=== PATIENT | male | born 1990 | race Caucasian/White ===

== ENCOUNTER 2017-07-11 00:34 | Emergency (ER) | payer SELFPAY ==
[~2017-07-11] VITALS: Ht 188 cm; Wt 90.7 kg
--- OUTSIDE RECORDS SUMMARY | 2017-07-11 00:40 | XMS REPORT | Continuity of Care Document ---
Author Author [employer] Organization [employer] Address Unknown Phone Unavailable Allergies Active Description Code Type Severity Reaction Onset Reported/Identified Relationship to Patient Clinical Status Yes NKA Drug N/A N/A Medications There is no data. Problems Date Dx Coded Attending Type Code Diagnosis Diagnosed By 08/15/2015 Joe Conte Final E86.0 Dehydration 08/15/2015 Joe Conte Final R00.2 Palpitations 08/15/2015 Joe Conte Final R42 Dizziness and giddiness 10/05/2015 Vahe Justin Final F19.959 Other psychoactive substance use, unspecified with psychoact 10/05/2015 Vahe Justin Final F32.9 Major depressive disorder, single episode, unspecified 10/16/2015 Silver Hernandez Final F19.10 Other psychoactive substance abuse, uncomplicated 10/16/2015 Silver Hernandez Final F32.9 Major depressive disorder, single episode, unspecified 10/16/2015 Silver Hernandez Final R45.851 Suicidal ideations Procedures Code [place] [address] Emergency department visit for the JULISA Mendoza 08/15/2015 08164 Emergency department visit for the JULISA Mendoza 10/05/2015 85386 Emergency department visit for the JULISA Mendoza 10/16/2015 Results Test Result Range DRUG OF ABUSE SCREEN - 10/05/15 01:25 Amphet/Methamphet Group DETECTED ND Barbiturates Group NOT DETECTED ND Benzodiazepines Group NOT DETECTED ND Cocaine DETECTED ND Methadone NOT DETECTED ND Opiates Group NOT DETECTED ND Phencyclidine NOT DETECTED ND Cannabinoid (THC) DETECTED ND Oxycodone Screen NOT DETECTED ND Chain Of Custody CHAIN OF CUSTODY NOT PROVIDED. RESULTS MAY ONLY BE USED FOR MEDICAL PURPOSES. [facility] COMPREHENSIVE METABOLIC PANEL - 10/05/15 02:35 Sodium 138 mmol/L 135-145 Potassium 3.4 mmol/L 3.6-5.0 Chloride 99 mmol/L 101-111 Carbon Dioxide, Total 26 mmol/L 21-31 Glucose Level 138 mg/dL 70-100 BUN 12 mg/dL 6-20 Creatinine 1.2 mg/dL 0.5-1.2 Calcium 9.6 mg/dL 8.5-10.5 Total Protein 7.3 g/dL 6.0-8.0 Albumin 4.7 g/dL 3.2-5.5 Alkaline Phosphatase 54 U/L 42-121 AST (SGOT) 31 U/L 10-42 ALT (SGPT) 20 U/L 10-60 Total Bilirubin 0.9 mg/dL 0.2-1.0 Calculated GFR >60.0 mL/min/1.73sq >60 Anion Gap 13 mmol/L NRG ETHANOL, BLOOD - 10/05/15 02:35 Ethanol NOT DETECTED mg/dL NONE DETECTED TSH, REFLEX TO FREE T4 - 10/05/15 02:35 TSHR 1.67 mIU/mL 0.34-5.60 ACETAMINOPHEN - 10/16/15 07:22 Acetaminophen <15.0 ug/mL 0.0-50.0 ETHANOL, BLOOD - 10/16/15 07:22 Ethanol NOT DETECTED mg/dL NONE DETECTED SALICYLATE - 10/16/15 07:22 Salicylate <0.3 mg/dL 20.0-25.0 COMPREHENSIVE METABOLIC PANEL - 10/16/15 07:22 Sodium 138 mmol/L 135-145 Potassium 4.0 mmol/L 3.6-5.0 Chloride 98 mmol/L 101-111 Carbon Dioxide, Total 26 mmol/L 21-31 Glucose Level 109 mg/dL 70-100 BUN 16 mg/dL 6-20 Creatinine 1.4 mg/dL 0.5-1.2 Calcium 9.9 mg/dL 8.5-10.5 Total Protein 7.5 g/dL 6.0-8.0 Albumin 4.9 g/dL 3.2-5.5 Alkaline Phosphatase 43 U/L 42-121 AST (SGOT) 18 U/L 10-42 ALT (SGPT) 13 U/L 10-60 Total Bilirubin 1.3 mg/dL 0.2-1.0 Calculated GFR >60.0 mL/min/1.73sq >60 Anion Gap 14 mmol/L NRG Encounters ACCT No. Visit Date/Time Discharge Status Pt. Type Provider Facility Loc./Unit Complaint [id number] 10/16/2015 06:59:00 10/16/2015 13:37:00 DIS Emergency Silver Hernandez [facility] ER Mental Health Eval. [id number] 10/05/2015 01:01:00 10/05/2015 03:41:00 DIS Emergency MargothVahe [facility] ER Mental Health Eval. [id number] 08/15/2015 13:03:00 08/15/2015 14:45:00 DIS Emergency Joe Conte [facility] ER [facility]
--- OUTSIDE RECORDS SUMMARY | 2017-07-11 00:40 | XMS REPORT ---
Author Author YAMILA GRAY Organization Unknown Address [address] [place] [address] Care Team Providers Care Graduate Civil Engineer Name Role Phone YAMILA GRAY Unavailable ABEL NAVAS Unavailable Problems Problem SNOMED Onset Date Resolved Date Status N/A N/A N/A N/A N/A Allergies, Adverse Reactions NA Care Plan Goal Instructions Client will participate in THOMAS services as he has identified a need Medications NA Lab Results NA Encounters Date Time Service Code Provider 11:52:00 am YAMILA GRAY 11:35:00 am YAMILA GRAY Family History Functional Status NA Immunizations NA Vital Signs NA Social History NA Hospital Discharge Instructions NA Instructions * Not Applicable Procedures NA Purpose Electronic Copy
--- OUTSIDE RECORDS SUMMARY | 2017-07-11 00:40 | XMS REPORT ---
Author Author YAMILA GRAY Organization Unknown Address [address] [place] [address] Care Team Providers Care Rush Seater Name Role Phone YAMILA GRAY Unavailable ELOISE ABEL Unavailable Problems Problem SNOMED Onset Date Resolved Date Status N/A N/A N/A N/A N/A Allergies, Adverse Reactions NA Care Plan Goal Instructions Client will be functioning more independently with supports and have a life worth living. Engage with treatment team to build rapport. Learn and practice coping skills to reduce symptoms and improve functioning. The following Services will be utilized 1 - 3 times until goal is reached: Client will participate in THOMAS services as he has identified a need Medications NA Lab Results NA Encounters Date Time Service Code Provider 11:52:00 am YAMILA GRAY 11:35:00 am YAMILA GRAY 12:00:00 am PSYCHIATRIC DIAGNOSTIC EVALUATION [address]25 ABEL ELOISE 12:00:00 am INDIVIDUAL THERAPY H0004 YAMILA GRYA 12:00:00 am OUTREACH SERVICES 55 YAMILA GRAY 12:00:00 am OUTREACH SERVICES 55 YAMILA GRAY 12:00:00 am OUTREACH SERVICES 55 YAMILA GRAY Family History Functional Status NA Immunizations NA Vital Signs NA Social History NA Hospital Discharge Instructions NA Instructions * Not Applicable Procedures NA Purpose Electronic Copy
--- OUTSIDE RECORDS SUMMARY | 2017-07-11 00:40 | XMS REPORT ---
Author Author JESUS OAKES Organization [employer] Address Unknown Phone Unavailable Care Team Providers Care Culinary Worker Name Role Phone JESUS OAKES CP Unavailable Allergies No Known Allergies Problems Problem Type Condition Code Onset Dates Condition Status Assessment Generalized anxiety disorder F41.1 Active Assessment Affective disorder F39 Active Medications No Known Medications Procedures Procedure Coding System Code Date Psychotherapy, patient &/family, 30 minutes, new patient CPT-4 68344 October Results No Known Results Summary Purpose [employer] Submission
[2017-07-11 00:42] VITALS: BP 156/108
--- NOTE | 2017-07-11 02:14 | ED Head Injury ---
General Chief Complaint: Laceration Stated Complaint: HEAD INJ W LAC Nursing Triage Note: Patient ambulated independently to room 10. Patient reports that he has been drinking. Patient reports that he was doing summersaults and hit his head on a light bulb causing a laceration on his head. Laceration noted to top of head about 5 cm. Patient alert and oriented. Source: patient, RN notes reviewed (SLL PMH IS OBTAINED FROM RN) Exam Limitations: intoxication History of Present Illness Date Seen by Provider: Jul 11, 2017 Time Seen by Provider: 00:45 Initial Comments PT ARRIVES VIA POV C/O HEAD INJURY WITH LACERATION TO TOP OF HEAD STATES "I JUMPED INTO A LIGHTBULB" STATES "I WAS DOING A FRONT FLIP AND HIT A LIGHT BULB" NO LOSS OF CONSCIOUSNESS DENIES OTHER INJURIES PT HAS BEEN DRINKING AN UNKNOWN AMOUNT OF ALCOHOL TONIGHT--REFUSES TO SAY HOW MUCH OR WHAT HE WAS DRINKING PT BELLIGERENT AND CURSING SOON I ENTER ROOM PT REFUSED HEAD CT OR ANY TEST AND REFUSES REPAIR AND MAKING DEMANDS SOON I ENTER ROOM AND THEN STATES HE IS JUST GOING TO LEAVE--REFUSED TO SIGN AMA PAPERS, AND PROMPTLY LEFT ER. SPEECH CLEAR AND GAIT STEADY Allergies and Home Medications Patient Home Medication List Home Medication List Reviewed: Yes Constitutional: other (UNABLE TO OBTAIN) Skin: other (LACERATION TO TOP OF HEAD) Past Nottigj-Fpbamu-Hlfckt Hx Patient Social History Alcohol Use: Occasionally Uses Recreational Drug Use: No Smoking Status: Current Everyday Smoker Type Used: Cigarettes Recent Foreign Travel: No Contact w/Someone Who Travel: No Recent Infectious Disease Expo: No Physical Abuse: No Sexual Abuse: No Surgeries History of Surgeries: No Respiratory History of Respiratory Disorde: No Cardiovascular History of Cardiac Disorders: No Neurological History of Neurological Disord: No Reproductive System Hx Reproductive Disorders: No Gastrointestinal History of Gastrointestinal Di: No Musculoskeletal History of Musculoskeletal Dis: No Endocrine History of Endocrine Disorders: No Psychosocial History of Psychiatric Problem: No Suicide Risk Score: 0 Integumentary History of Skin or Integumenta: No Blood Transfusions History of Blood Disorders: No Physical Exam Vital Signs Vital Signs - First Documented 07/11/17 00:42 Temp 98.2 Pulse 124 Resp 18 B/P (MAP) 156/108 (124) Pulse Ox 94 Capillary Refill : Less Than 3 Seconds General Appearance: other (STRONG ODOR OF ETOH. SPEECH CLEAR, GAIT STEADY. PT BELLIGERANT AND CURSING SOON I ENTER ROOM.) HEENT: PERRL/EOMI, TMs normal, pharynx normal, other (PT HAS 5 CM LINEAR LACERATION TO LEFT TOP OF HEAD, WITH MILD SURROUNDING EDEMA. ) Neck: non-tender Cardiovascular: regular rate, rhythm Respiratory: normal breath sounds Extremities: normal range of motion, non-tender, normal capillary refill Psychiatric: alert, oriented x 3 Crainal Nerves: normal speech Coordination/Gait: normal gait Motor/Sensory: no motor deficit, no sensory deficit Skin: normal color, warm/dry Mya Coma Score Best Eye Response: (4) Open Spontaneously Best Verbal Response: (5) Oriented Best Motor Response: (6) Obeys Commands Mya Total: 15 Progress/Results/Core Measures Results/Orders Vital Signs/I&O Vital Sign - Last 12Hours 07/11/17 00:42 Temp 98.2 Pulse 124 Resp 18 B/P (MAP) 156/108 (124) Pulse Ox 94 Blood Pressure Mean: 124 Departure Impression Impression: Primary Impression: Left against medical advice Disposition: 07 AGAINST MEDICAL ADVICE Condition: Against Medical Advice Departure-Patient Inst. Referrals: NO,LOCAL PHYSICIAN (PCP) Primary Care Physician Images Head/Face 1 - Laceration, Swelling, Tenderness DANE MOTTA DO Jul 11, 2017 02:13
== END 2017-07-11 01:03 | disposition left against medical advice (07) ==
LOC: EDUNIT# 00:34 → ER 00:36
DX: S09.90XA Unspecified injury of head, initial encounter (principal); S01.81XA Laceration without foreign body of other part of head, initial encounter; R40.2142 Coma scale, eyes open, spontaneous, at arrival to emergency department; R40.2252 Coma scale, best verbal response, oriented, at arrival to emergency department; R40.2362 Coma scale, best motor response, obeys commands, at arrival to emergency department; F17.210 Nicotine dependence, cigarettes, uncomplicated; W22.09XA Striking against other stationary object, initial encounter
CPT/HCPCS: 99282

== ENCOUNTER 2017-09-20 15:13 | Emergency (ER) | payer SELFPAY ==
[~2017-09-20] VITALS: Ht 182.9 cm; Wt 81.6 kg
[2017-09-20 16:39] LABS: BASOPHILS % (AUTO) 0 % (0-10); EOSINOPHILS % (AUTO) 0 % (0-10); HEMATOCRIT 49 % (40-54); HEMOGLOBIN 17.3 G/DL (13.3-17.7); LYMPHOCYTES # (AUTO) 0.9 X 10^3 (1.0-4.0); LYMPHOCYTES % (AUTO) 12 % (12-44); MEAN CORPUSCULAR HEMOGLOBIN 32 PG (25-34); MEAN CORPUSCULAR HGB CONC 35 G/DL (32-36); MEAN CORPUSCULAR VOLUME 92 FL (80-99); MEAN PLATELET VOLUME 10.1 FL (7.4-10.4); MONOCYTES # (AUTO) 0.8 X 10^3 (0.0-1.0); MONOCYTES % (AUTO) 10 % (0-12); NEUTROPHILS # (AUTO) 6.2 X 10^3 (1.8-7.8); NEUTROPHILS % (AUTO) 78 % (42-75); PLATELET COUNT 284 10^3/uL (130-400); RED BLOOD COUNT 5.35 10^6/uL (4.35-5.85); RED CELL DISTRIBUTION WIDTH 12.7 % (10.0-14.5); WHITE BLOOD COUNT 7.9 10^3/uL (4.3-11.0)
[2017-09-20 16:57] LABS: ALANINE AMINOTRANSFERASE 38 U/L (0-55); ALBUMIN 4.8 GM/DL (3.2-4.5); ALKALINE PHOSPHATASE 47 U/L (40-136); BILIRUBIN,TOTAL 1.7 MG/DL (0.1-1.0); BUN/CREATININE RATIO 10; CALCIUM 10.4 MG/DL (8.5-10.1); CARBON DIOXIDE 22 MMOL/L (21-32); CHLORIDE 102 MMOL/L (98-107); CREATININE SERUM 1.24 MG/DL (0.60-1.30); GFR ESTIMATED > 60; GLUCOSE 75 MG/DL (70-105); POTASSIUM 4.7 MMOL/L (3.6-5.0); SALICYLATE < 5.0 MG/DL (5.0-20.0); SODIUM 140 MMOL/L (135-145); TOTAL PROTEIN 7.9 GM/DL (6.4-8.2)
[2017-09-20 16:58] LABS: ACETAMINOPHEN < 10 UG/ML (10-30)
--- NOTE | 2017-09-20 17:04 | ED Psychosocial ---
General Chief Complaint: Psych/Social Disorder Stated Complaint: MENTAL EVAL Nursing Triage Note: Pt reports he made suicidal and homicidal threats last night when threatening to shoot himself or someone else with a gun. Pt reports he has hx anxiety and depression and has not been on medications for quite some time. Pt states he does not wish to at this time and reports that his plan yesterday involved a gun that he does not have access to. Pt states he came back into town today and the geospatial systems integrator were called to his house. After the geospatial systems integrator left, pt reports he made a safe plan with his aunt and felt much calmer. Waterworks Supervisor were again called to his house and pt reports he was told by geospatial systems integrator he should come to ER for mental health screening. Pt also c/o possible broken nose from 3 days ago. Pt calm upon arrival to ED acc by female. History of Present Illness Date Seen by Provider: September 20, 2017 Time Seen by Provider: 16:00 Initial Comments 26-year-old male with long-standing history of bipolar disorder reports last evening that he made suicidal thoughts to his friends after drinking alcohol, taking Xanax and smoking marijuana. He has previously been treated with multiple antipsychotic medications and did the best while on Effexor and Xanax. However when he discontinued the Xanax he began to have seizure activity. He's been on no antipsychotic medications for the last 3 years and denies any further seizure history. At present time he denies any suicidal or homicidal ideations. He reports relationship issues with his mother that seem to stimulate many of his mental health issues, he reports lack of attention from her since childhood that has profoundly affected him to complete attention seeking behaviors now. He reports last evening finding out that she was moving to [place] along with his sister and that his mother is remarrying. He did superficial cutting to his right wrist last evening, he denies doing this to harm himself but rather to obtain attention from his mother and friends. He denies any suicide attempts in the past. He has a close relationship and open communication with his aunt, they already have a plan with appointment scheduled for him to be evaluated at [facility] tomorrow. Today his mother called the [place] police and asked to have a welfare check completed, after the first visit with the police the patient agreed to keep an open line of communication with his aunt and call her for further thoughts of harm. The police made a second visit to his home which caused him extreme anxiety and he reported here per their recommendation. He presents in a calm demeanor, good eye contact and answering all questions appropriately. His girlfriend is present as well. Timing/Duration: yesterday Severity: mild Associated Symptoms: anxiety Allergies and Home Medications Allergies Coded Allergies: No Known Drug Allergies (Unverified , 09/20/17) Patient Home Medication List Home Medication List Reviewed: Yes Constitutional: no symptoms reported, see HPI Psychiatric/Neurological: See HPI, Anxiety, Depressed All Other Systems Reviewed Negative Unless Noted: Yes Past Uenqkci-Lefddj-Wbuhea Hx Past Med/Social Hx: Reviewed Nursing Past Med/Soc Hx Patient Social History Alcohol Use: Regular Use Alcohol Beverage of Choice: Beer Recreational Drug Use: Yes (MARIJUANA) Smoking Status: Current Everyday Smoker Type Used: Cigarettes Recent Foreign Travel: No Contact w/Someone Who Travel: No Recent Infectious Disease Expo: No Recent Hopitalizations: No Seasonal Allergies Seasonal Allergies: No Past Medical History Surgeries: Yes Orthopedic Respiratory: No Cardiac: No Neurological: No Reproductive Disorders: No Genitourinary: No Gastrointestinal: No Musculoskeletal: No Endocrine: No Psychosocial: Yes Anxiety, Depression Integumentary: No Blood Disorders: No Physical Exam Vital Signs Vital Signs - First Documented 09/20/17 15:40 Temp 98.1 Pulse 127 Resp 20 B/P (MAP) 128/74 (92) Pulse Ox 96 O2 Delivery Room Air Capillary Refill : Less Than 3 Seconds General Appearance: WD/WN, no apparent distress HEENT: PERRL/EOMI, normal ENT inspection, TMs normal, pharynx normal Neck: non-tender, full range of motion, supple, normal inspection Respiratory: chest non-tender, lungs clear, normal breath sounds Cardiovascular: normal peripheral pulses, regular rate, rhythm Gastrointestinal: normal bowel sounds, non tender, soft Extremities: normal range of motion, non-tender, normal inspection Neurologic/Psychiatric: no motor/sensory deficits, alert, normal mood/affect, oriented x 3 Appearance/Memory: appropriate appearance, appropriate insight, neat, no memory impairment Behavior/Eye Contact: cooperative, good eye contact, normal speech Thoughts/Hallucinations: normal thought pattern, no apparent hallucination Skin: normal color, warm/dry, other (superficial lacerations to right wrist, no bleeding or dc) Progress/Results/Core Measures Results/Orders Lab Results Laboratory Tests Test 09/20/17 16:29 09/20/17 17:25 Range/Units White Blood Count 7.9 4.3-11.0 10^3/uL Red Blood Count 5.35 4.35-5.85 10^6/uL Hemoglobin 17.3 13.3-17.7 G/DL Hematocrit 49 40-54 % Mean Corpuscular Volume 92 80-99 FL Mean Corpuscular Hemoglobin 32 25-34 PG Mean Corpuscular Hemoglobin Concent 35 32-36 G/DL Red Cell Distribution Width 12.7 10.0-14.5 % Platelet Count 284 130-400 10^3/uL Mean Platelet Volume 10.1 7.4-10.4 FL Neutrophils (%) (Auto) 78 H 42-75 % Lymphocytes (%) (Auto) 12 12-44 % Monocytes (%) (Auto) 10 0-12 % Eosinophils (%) (Auto) 0 0-10 % Basophils (%) (Auto) 0 0-10 % Neutrophils # (Auto) 6.2 1.8-7.8 X 10^3 Lymphocytes # (Auto) 0.9 L 1.0-4.0 X 10^3 Monocytes # (Auto) 0.8 0.0-1.0 X 10^3 Eosinophils # (Auto) 0.0 0.0-0.3 10^3/uL Basophils # (Auto) 0.0 0.0-0.1 10^3/uL Sodium Level 140 135-145 MMOL/L Potassium Level 4.7 3.6-5.0 MMOL/L Chloride Level 102 98-107 MMOL/L Carbon Dioxide Level 22 21-32 MMOL/L Anion Gap 16 H 5-14 MMOL/L Blood Urea Nitrogen 12 7-18 MG/DL Creatinine 1.24 0.60-1.30 MG/DL Estimat Glomerular Filtration Rate > 60 BUN/Creatinine Ratio 10 Glucose Level 75 70-105 MG/DL Calcium Level 10.4 H 8.5-10.1 MG/DL Total Bilirubin 1.7 H 0.1-1.0 MG/DL Aspartate Amino Transf (AST/SGOT) 28 5-34 U/L Alanine Aminotransferase (ALT/SGPT) 38 0-55 U/L Alkaline Phosphatase 47 40-136 U/L Total Protein 7.9 6.4-8.2 GM/DL Albumin 4.8 H 3.2-4.5 GM/DL Salicylates Level < 5.0 L 5.0-20.0 MG/DL Acetaminophen Level < 10 L 10-30 UG/ML Serum Alcohol < 10 <10 MG/DL Urine Color YELLOW Urine Clarity SLIGHTLY CLOUDY Urine pH 5 5-9 Urine Specific [place] 1.030 H 1.016-1.022 Urine Protein 1+ H NEGATIVE Urine Glucose (UA) NEGATIVE NEGATIVE Urine Ketones 3+ H NEGATIVE Urine Nitrite NEGATIVE NEGATIVE Urine Bilirubin 1+ H NEGATIVE Urine Urobilinogen 1 NORMAL MG/DL Urine Leukocyte Esterase 1+ H NEGATIVE Urine RBC (Auto) NEGATIVE NEGATIVE Urine RBC NONE /HPF Urine WBC 0-2 /HPF Urine Squamous Epithelial Cells NONE /HPF Urine Crystals NONE /LPF Urine Bacteria NEGATIVE /HPF Urine Casts NONE /LPF Urine Mucus NEGATIVE /LPF Urine Culture Indicated NO My Orders Orders - SERGE SOSA Ua Culture If Indicated (09/20/17 16:16) Cbc With Automated Diff (09/20/17 16:16) Comprehensive Metabolic Panel (09/20/17 16:16) Alcohol (09/20/17 16:16) Drug Screen Stat (Urine) (09/20/17 16:16) Acetaminophen (09/20/17 16:16) Salicylate (09/20/17 16:16) General/Regular (09/20/17 Dinner) Vital Signs/I&O 09/20/17 09/20/17 15:40 17:33 Temp 98.1 98.1 Pulse 127 127 Resp 20 20 B/P (MAP) 128/74 (92) 128/74 (92) Pulse Ox 96 96 O2 Delivery Room Air Blood Pressure Mean: 92 Progress Progress Note : Time: 16:00 Progress Note Initial evaluation completed, contacted the SAVE line. Since the patient is not homicidal or suicidal they recommended welfare check later today. The patient was in agreement with this and his number was provided to social worker psychiatric, Anna Willard. 1700 patient continues to be compliant with all questions and exam. He ate a regular dinner meal, reports feeling much better. Wounds to right writs cleaned with Hibiclens and sterile saline, dressing applied. 1715 urine obtained. Patient denies any other complaints at this time, he continues to be compliant through the exam and denies suicidal/homicidal ideations. Discharge instructions and return precautions reviewed in detail. All questions answered. Departure Impression Primary Impression: Bipolar 1 disorder, mixed Disposition: 01 HOME, SELF-CARE Condition: Stable Departure-Patient Inst. Referrals: [facility] (PCP/Family) Primary Care Physician Patient Instructions: Bipolar Disorder (DC) Add. Discharge Instructions: Keep open communication with her aunt, contact her immediately if feelings of harm to yourself or others. Keep scheduled mental health appointment for tomorrow. The mental health screener will call later this evening to do a welfare check on you. Return to emergency department if symptoms become worse or suicidal thoughts. All discharge instructions reviewed with patient and/or family. Voiced understanding. Copy Copies To 1: MATEO ALBRIGHT MD, AMY ARNP September 20, 2017 17:04
[2017-09-20 17:32] LABS: CLARITY,URINE SLIGHTLY CLOUDY; COLOR,URINE YELLOW; GLUCOSE, URINE (UA) NEGATIVE (NEGATIVE); KETONES,URINE 3+ (NEGATIVE); LEUKOCYTE ESTERASE ,URINE 1+ (NEGATIVE); NITRITE,URINE NEGATIVE (NEGATIVE); PH,URINE 5 (5-9); PROTEIN,URINE 1+ (NEGATIVE); UROBILINOGEN,URINE 1 MG/DL (NORMAL)
[2017-09-20 17:33] VITALS: BP 128/74
[2017-09-20 17:38] LABS: BACTERIA,URINE NEGATIVE /HPF; BILIRUBIN,URINE 1+ (NEGATIVE); WBC,URINE 0-2 /HPF
[2017-09-20 17:46] LABS: AMPHETAMINE SCREEN, URINE POSITIVE (NEGATIVE); BARBITURATE SCREEN URINE NEGATIVE (NEGATIVE); BENZODIAZEPINES SCREEN URINE POSITIVE (NEGATIVE); CANNABINOID SCREEN, URINE POSITIVE (NEGATIVE); COCAINE SCREEN URINE NEGATIVE (NEGATIVE); METHADONE STAT NEGATIVE (NEGATIVE); METHAMPHETAMINE SCREEN URINE S POSITIVE (NEGATIVE); OPIATE SCREEN URINE NEGATIVE (NEGATIVE); OXYCODONE STAT NEGATIVE (NEGATIVE); PROPOXYPHENE STAT NEGATIVE (NEGATIVE); TRICYCLIC ANTIDEPRESSANTS SCRE NEGATIVE (NEGATIVE)
== END 2017-09-20 17:32 | disposition home or self-care (01) ==
LOC: ER 15:13 → EDUNIT# 15:13 → ER 17:32
DX: F31.89 Other bipolar disorder (principal); F41.9 Anxiety disorder, unspecified; F12.10 Cannabis abuse, uncomplicated; F17.210 Nicotine dependence, cigarettes, uncomplicated
CPT/HCPCS: 36415; 80053; 80306; 80320; 80329; 81000; 85025; 99284

== ENCOUNTER 2018-03-30 14:21 | Inpatient (IN) | payer SELFPAY ==
[~2018-03-30] VITALS: Ht 180.3 cm; Wt 72.6 kg
--- OUTSIDE RECORDS SUMMARY | 2018-03-30 14:25 | XMS REPORT ---
Author Author ABRAM ORTIZ Organization [facility] Address [address] [place] [address] Care Team Providers Care Paramedic Supervisor Name Role Phone ABRAM ORTIZ Unavailable PROBLEMS Unknown Problems ALLERGIES No Known Allergies ENCOUNTERS Encounter Location Date Diagnosis [facility] [id number] [place] [phone] 08 May, 2017 [facility] [id number] [place] [phone] 07 May, 2017 Coughing R05 [facility] [id number] [place] [phone] 08 Apr, 2017 Viral URI J06.9 [facility] [address] [place] [phone] 13 Oct, 2015 Affective disorder F39 and Generalized anxiety disorder F41.1 [place] [address] [place] [phone] 08 Feb, 2011 [facility] [address] [place] [address] Nov, IMMUNIZATIONS No Known Immunizations SOCIAL HISTORY Never Assessed REASON FOR VISIT Cough Pt states he has had a cough for about a month LAURA Franklin PLAN OF CARE Activity Details Follow Up prn Reason: VITAL SIGNS Weight 179.8 lbs 2017-05-03 Temperature 98.4 degrees Fahrenheit 2017-05-03 Heart Rate 96 bpm 2017-05-03 Respiratory Rate 18 2017-05-03 Blood pressure systolic 140 mmHg 2017-05-03 Blood pressure diastolic 96 mmHg 2017-05-03 MEDICATIONS Unknown Medications RESULTS No Results PROCEDURES No Known procedures INSTRUCTIONS MEDICATIONS ADMINISTERED No Known Medications MEDICAL (GENERAL) HISTORY Type Description Date Surgical History plastic surgery on face 1999 Hospitalization History seizure 03/2016
--- OUTSIDE RECORDS SUMMARY | 2018-03-30 14:25 | XMS REPORT ---
Author Author ABHAY DUKES Organization [facility] Address [address] [place] [address] Care Team Providers Care Clerical Coordinator Name Role Phone ABHAY DUKES Unavailable PROBLEMS Unknown Problems ALLERGIES No Known Allergies ENCOUNTERS Encounter Location Date Diagnosis [place] [id number] [place] [phone] May, [facility] [address] [place] [place] [id number] [place] [phone] May, Coughing R05 [place] [id number] [place] [phone] Apr, Viral URI J06.[address] [place] [id number] [place] [phone] Oct, Affective disorder F39 and Generalized anxiety disorder F41.1 [place] [id number] [place] [phone] 08 Feb, 2011 [place] [id number] [place] [phone] Nov, IMMUNIZATIONS No Known Immunizations SOCIAL HISTORY Never Assessed REASON FOR VISIT Sore throat--CarleyleachMA, Coughing for the last month, trouble sleeping because of sore throat, Wondering if his anxiety is not helping the cause, also wanting anxiety medcine that is not addictive PLAN OF CARE VITAL SIGNS Weight 180.6 lbs 2017-06-02 Temperature 97.8 degrees Fahrenheit 2017-06-02 Heart Rate 90 bpm 2017-06-02 Respiratory Rate 20 2017-06-02 Blood pressure systolic 140 mmHg 2017-06-02 Blood pressure diastolic 100 mmHg 2017-06-02 MEDICATIONS Medication Instructions Dosage Frequency Start Date End Date Duration Status Singulair 10 mg Orally Once a day 1 tablet in the evening 24h May, 30 day(s) Active Cetirizine HCl 10 mg Orally Once a day 1 tablet 24h May, Nov, 30 day(s) Active RESULTS Name Result Date Reference Range Xray : Chest 2 View (IN HOUSE) PROCEDURES Procedure Date Ordered Result Body Site X-RAY EXAM CHEST 2 VIEWS Jun 02, 2017 INSTRUCTIONS MEDICATIONS ADMINISTERED No Known Medications MEDICAL (GENERAL) HISTORY Type Description Date Surgical History plastic surgery on face 1999 Hospitalization History seizure 03/2016
--- OUTSIDE RECORDS SUMMARY | 2018-03-30 14:26 | XMS REPORT | Continuity of Care Document ---
Author Author [facility] Organization [facility] Address Unknown Phone Unavailable Allergies Active Description Code Type Severity Reaction Onset Reported/Identified Relationship to Patient Clinical Status Yes NKA Drug N/A N/A Yes NO KNOWN DRUG ALLERGIES UNKNOWN NO KNOWN DRUG ALLERG Yes No Known Drug Allergies [id number] Drug Allergy Unknown N/A 09/20/2017 Medications There is no data. Problems Date [...] 10/16/2015 Silver Hernandez Final R45.851 Suicidal ideations 07/11/2017 DANE MOTTA DO Ot F17.210 NICOTINE DEPENDENCE, CIGARETTES, UNCOMPL 07/11/2017 DANE MOTTA DO Ot R40.2142 COMA SCALE, EYES OPEN, SPONTANEOUS, EMR 07/11/2017 DANE MOTTA DO Ot R40.2252 COMA SCALE, BEST VERBAL RESPONSE, ORIENT 07/11/2017 DANE MOTTA DO Ot R40.2362 COMA SCALE, BEST MOTOR RESPONSE, OBEYS C 07/11/2017 DANE MOTTA DO Ot S01.81XA LACERATION W/O FOREIGN BODY OF OTH PART 07/11/2017 DANE MOTTA DO Ot S09.90XA UNSPECIFIED INJURY OF HEAD, INITIAL ENCO 07/11/2017 DANE MOTTA DO Ot W22.09XA STRIKING AGAINST OTHER STATIONARY OBJECT 07/13/2017 DANE MOTTA DO Ot F17.210 NICOTINE DEPENDENCE, CIGARETTES, UNCOMPL 07/13/2017 DANE MOTTA DO Ot R40.2142 COMA SCALE, EYES OPEN, SPONTANEOUS, EMR 07/13/2017 DANE MOTTA DO Ot R40.2252 COMA SCALE, BEST VERBAL RESPONSE, ORIENT 07/13/2017 DANE MOTTA DO Ot R40.2362 COMA SCALE, BEST MOTOR RESPONSE, OBEYS C 07/13/2017 DANE MOTTA DO Ot S01.81XA LACERATION W/O FOREIGN BODY OF OTH PART 07/13/2017 DANE MOTTA DO Ot S09.90XA UNSPECIFIED INJURY OF HEAD, INITIAL ENCO 07/13/2017 DANE MOTTA DO Ot W22.09XA STRIKING AGAINST OTHER STATIONARY OBJECT 09/20/2017 SHEILA, SERGE RAINESP Ot F12.10 CANNABIS ABUSE, UNCOMPLICATED 09/20/2017 SHEILA, SERGE RAINESP Ot F17.210 NICOTINE DEPENDENCE, CIGARETTES, UNCOMPL 09/20/2017 SHEILA, SERGE STOCKING AND [employer]PER[employer]OR Ot F31.89 OTHER BIPOLAR DISORDER 09/20/2017 SHEILA, SERGE [employer]ING AND [employer] SUPERVISOR Ot F41.9 ANXIETY DISORDER, UNSPECIFIED 03/17/2018 Jo-Ann Gonzalez 292.0 DRUG WITHDRAWAL 03/17/2018 Jo-Ann Gonzalez A 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 NRG COMPREHENSIVE METABOLIC PANEL - 10/05/15 02:35 Sodium [...] >60.0 mL/min/1.73sq >60 Anion Gap 13 mmol/L [facility] ETHANOL, BLOOD - 10/05/15 02:35 Ethanol NOT [...] >60.0 mL/min/1.73sq >60 Anion Gap 14 mmol/L NR Complete blood count (CBC) with automated white blood cell (WBC) differential - 09/20/17 16:29 Blood leukocytes automated count (number/volume) 7.9 10*3/uL 4.3-11.0 Blood erythrocytes automated count (number/volume) 5.35 10*6/uL 4.35-5.85 Venous blood hemoglobin measurement (mass/volume) 17.3 g/dL 13.3-17.7 Blood hematocrit (volume fraction) 49 % 40-54 Automated erythrocyte mean corpuscular volume 92 [foz_us] 80-99 Automated erythrocyte mean corpuscular hemoglobin (mass per erythrocyte) 32 pg 25-34 Automated erythrocyte mean corpuscular hemoglobin concentration measurement ( mass/volume) 35 g/dL 32-36 Automated erythrocyte distribution width ratio 12.7 % 10.0-14.5 Automated blood platelet count (count/volume) 284 10*3/uL 130-400 Automated blood platelet mean volume measurement 10.1 [foz_us] 7.4-10.4 Automated blood neutrophils/100 leukocytes 78 % 42-75 Automated blood lymphocytes/100 leukocytes 12 % 12-44 Blood monocytes/100 leukocytes 10 % 0-12 Automated blood eosinophils/100 leukocytes 0 % 0-10 Automated blood basophils/100 leukocytes 0 % 0-10 Blood neutrophils automated count (number/volume) 6.2 10*3 1.8-7.8 Blood lymphocytes automated count (number/volume) 0.9 10*3 1.0-4.0 Blood monocytes automated count (number/volume) 0.8 10*3 0.0-1.0 Automated eosinophil count 0.0 10*3/uL 0.0-0.3 Automated blood basophil count (count/volume) 0.0 10*3/uL 0.0-0.1 Comprehensive metabolic panel - 09/20/17 16:29 Serum or plasma sodium measurement (moles/volume) 140 mmol/L 135-145 Serum or plasma potassium measurement (moles/volume) 4.7 mmol/L 3.6-5.0 Serum or plasma chloride measurement (moles/volume) 102 mmol/L 98-107 Carbon dioxide 22 mmol/L 21-32 Serum or plasma anion gap determination (moles/volume) 16 mmol/L 5-14 Serum or plasma urea nitrogen measurement (mass/volume) 12 mg/dL 7-18 Serum or plasma creatinine measurement (mass/volume) 1.24 mg/dL 0.60-1.30 Serum or plasma urea nitrogen/creatinine mass ratio 10 NRG Serum or plasma creatinine measurement with calculation of estimated glomerular filtration rate > NRG Serum or plasma glucose measurement (mass/volume) 75 mg/dL 70-105 Serum or plasma calcium measurement (mass/volume) 10.4 mg/dL 8.5-10.1 Serum or plasma total bilirubin measurement (mass/volume) 1.7 mg/dL 0.1-1.0 Serum or plasma alkaline phosphatase measurement (enzymatic activity/volume) 47 U/L 40-136 Serum or plasma aspartate aminotransferase measurement (enzymatic activity/ volume) 28 U/L 5-34 Serum or plasma alanine aminotransferase measurement (enzymatic activity/volume ) 38 U/L 0-55 Serum or plasma protein measurement (mass/volume) 7.9 g/dL 6.4-8.2 Serum or plasma albumin measurement (mass/volume) 4.8 g/dL 3.2-4.5 Serum or plasma salicylates measurement (mass/volume) - 09/20/17 16:29 Serum or plasma salicylates measurement (mass/volume) < mg/dL 5.0-20.0 Serum or plasma acetaminophen measurement (mass/volume) - 09/20/17 16:29 Serum or plasma acetaminophen measurement (mass/volume) < ug/mL 10-30 Serum or plasma ethanol measurement (mass/volume) - 09/20/17 16:29 Serum or plasma ethanol measurement (mass/volume) < mg/dL <10 Complete urinalysis with reflex to culture - 09/20/17 17:25 Urine color determination YELLOW NRG Urine clarity determination SLIGHTLY CLOUDY NRG Urine pH measurement by test strip 5 5-9 Specific gravity of urine by test strip 1.030 1.016- 1.022 Urine protein assay by test strip, semi-quantitative 1+ NEGATIVE Urine glucose detection by automated test strip NEGATIVE NEGATIVE Erythrocytes detection in urine sediment by light microscopy NEGATIVE NEGATIVE Urine ketones detection by automated test strip 3+ NEGATIVE Urine nitrite detection by test strip NEGATIVE NEGATIVE Urine total bilirubin detection by test strip 1+ NEGATIVE Urine urobilinogen measurement by automated test strip (mass/volume) 1 mg/dL NORMAL Urine leukocyte esterase detection by dipstick 1+ NEGATIVE Automated urine sediment erythrocyte count by microscopy (number/high power field) NONE NRG Automated urine sediment leukocyte count by microscopy (number/high power field ) [HPF] NRG Bacteria detection in urine sediment by light microscopy NEGATIVE NRG Squamous epithelial cells detection in urine sediment by light microscopy NONE NRG Crystals detection in urine sediment by light microscopy NONE NRG Casts detection in urine sediment by light microscopy NONE NRG Mucus detection in urine sediment by light microscopy NEGATIVE NRG Complete urinalysis with reflex to culture NO NRG Urine drug screening test - 09/20/17 17:25 Urine phencyclidine detection by screening method NEGATIVE NEGATIVE Urine benzodiazepines detection by screening method POSITIVE NEGATIVE Urine cocaine detection NEGATIVE NEGATIVE Urine amphetamines detection by screening method POSITIVE NEGATIVE Urine methamphetamine detection by screening method POSITIVE NEGATIVE Urine cannabinoids detection by screening method POSITIVE NEGATIVE Urine opiates detection by screening method NEGATIVE NEGATIVE Urine barbiturates detection NEGATIVE NEGATIVE Screening urine tricyclic antidepressants detection NEGATIVE NEGATIVE Urine methadone detection by screening method NEGATIVE NEGATIVE Urine oxycodone detection NEGATIVE NEGATIVE Urine propoxyphene detection NEGATIVE NEGATIVE Encounters ACCT No. Visit Date/Time Discharge Status Pt. Type Provider Facility Loc./Unit Complaint [id number] 10/16/2015 06:59:00 10/16/2015 13:37:00 DIS Emergency [facility] ER Mental Health Eval. [id number] 10/05/2015 01:01:00 10/05/2015 03:41:00 DIS Emergency [facility] ER Mental Health Eval. [id number] 08/15/2015 13:03:00 08/15/2015 14:45:00 DIS Emergency Dg, [facility] ER General Medical [id number] 03/17/2018 18:54:00 03/17/2018 19:55:00 DIS Outpatient Jo-Ann Gonzalez [facility] ER [id number] 09/20/2017 15:13:00 09/20/2017 17:32:00 DIS Emergency SHEILASERGE [facility] ER MENTAL EVAL [id number] 07/11/2017 00:36:00 07/11/2017 01:03:00 DIS Emergency DANE MOTTA DO [facility] ER HEAD INJ W LAC [id number] 06/02/2017 17:50:00 06/02/2017 23:59:59 [facility] Outpatient ANAND [facility]
[2018-03-30] MEDS ORDERED: ACETAMINOPHEN 500 MG TAB (TYLENOL) PO ONE (14:30)
[2018-03-30] MEDS ORDERED: IBUPROFEN 800 MG (MOTRIN) TAB PO ONE (14:30)
[2018-03-30] MEDS: NS IV 1000 ML 1,000 ML IV SCH ×3 (14:53→18:45)
[2018-03-30 14:55] LABS: BASOPHILS % (AUTO) 0 % (0-10); EOSINOPHILS % (AUTO) 0 % (0-10); HEMATOCRIT 47 % (40-54); HEMOGLOBIN 15.9 G/DL (13.3-17.7); LYMPHOCYTES # (AUTO) 0.3 X 10^3 (1.0-4.0); LYMPHOCYTES % (AUTO) 12 % (12-44); MEAN CORPUSCULAR HEMOGLOBIN 30 PG (25-34); MEAN CORPUSCULAR HGB CONC 34 G/DL (32-36); MEAN CORPUSCULAR VOLUME 89 FL (80-99); MEAN PLATELET VOLUME 9.4 FL (7.4-10.4); MONOCYTES % (AUTO) 1 % (0-12); NEUTROPHILS # (AUTO) 1.9 X 10^3 (1.8-7.8); NEUTROPHILS % (AUTO) 87 % (42-75); PLATELET COUNT 177 10^3/uL (130-400); RED BLOOD COUNT 5.25 10^6/uL (4.35-5.85); RED CELL DISTRIBUTION WIDTH 12.8 % (10.0-14.5); WHITE BLOOD COUNT 2.2 10^3/uL (4.3-11.0)
[2018-03-30] MEDS ORDERED: LORazepam INJ 2 MG/ML (ATIVAN) VIAL IVP ONE (15:00)
[2018-03-30 15:06] LABS: PROTHROMBIN TIME PATIENT 13.3 SEC (12.2-14.7)
[2018-03-30 15:18] LABS: ALANINE AMINOTRANSFERASE 17 U/L (0-55); ALBUMIN 4.5 GM/DL (3.2-4.5); ALKALINE PHOSPHATASE 61 U/L (40-136); BILIRUBIN,TOTAL 1.2 MG/DL (0.1-1.0); BUN/CREATININE RATIO 12; CALCIUM 9.8 MG/DL (8.5-10.1); CARBON DIOXIDE 23 MMOL/L (21-32); CHLORIDE 103 MMOL/L (98-107); CREATINE KINASE 92 U/L (30-200); CREATININE SERUM 1.06 MG/DL (0.60-1.30); GFR ESTIMATED > 60; GLUCOSE 86 MG/DL (70-105); POTASSIUM 3.8 MMOL/L (3.6-5.0); SODIUM 139 MMOL/L (135-145); TOTAL PROTEIN 7.4 GM/DL (6.4-8.2)
[2018-03-30 15:26] LABS: BAND NEUTROPHILS 17 %; BASOPHILS % (MANUAL) 0 %; EOSINOPHILS % (MANUAL) 0 %; LYMPHOCYTES % (MANUAL) 22 %; MONOCYTES % (MANUAL) 0 %; NEUTROPHILS % (MANUAL) 61 %; RBC MORPH NORMAL
--- NOTE | 2018-03-30 15:31 | Diagnostic Imaging Report ---
INDICATION: Chest pain. TIME OF EXAM: 3:08 PM COMPARISON: No prior studies are available for comparison. FINDINGS: The heart size is normal. The pulmonary vascularity is unremarkable. The lungs are clear. No infiltrate, effusion or pneumothorax is detected. IMPRESSION: No acute cardiopulmonary process is detected. Dictated by: Dictated on workstation # [id number]
--- NOTE | 2018-03-30 15:42 | ED General ---
General Chief Complaint: General Problems/Pain Stated Complaint: H/A Nursing Triage Note: Pt brought to ED via EMS. Pt was at library when library staff called EMS. Pt c/o generalized pain. Pt reports using IV meth last night, drinking one beer today. Pt self reports being addicted to benzos and has not taken any in 48 hrs. Nursing Sepsis Screen: No Definite Risk Source of Information: Patient, EMS Exam Limitations: No Limitations History of Present Illness Date Seen by Provider: Mar 30, 2018 Time Seen by Provider: 12:20 Initial Comments Patient is a 27 year old male who was brought to the emergency room by [facility] with comp pain all over body and fever. He reports that he was walking to his appointment at [facility] today when he began to have terrible pain all over his body and went into the public [facility] for help and they called 911. The patient reports that he uses methamphetamines regularly with his last does being last night and drinking beer this morning. He reports that that he is also addicted to benzodiazepines and has not taking any for 48 hours. He is very anxious on arrival to the ED and is found to have a fever. Reports IV meth use. Timing/Duration: 1/2 Hour Associated Systoms: Fever/Chills Allergies and Home Medications Allergies Coded Allergies: No Known Drug Allergies (Unverified , 09/20/17) Patient Home Medication List Home Medication List Reviewed: Yes Review of Systems Review of Systems Constitutional: see HPI, chills, fever Musculoskeletal: see HPI, muscle pain (geniralized body aches) Skin: see HPI Psychiatric/Neurological: See HPI, Headache All Other Systems Reviewed Negative Unless Noted: Yes Past Hnwnbad-Wrqizz-Kwcohh Hx Past Med/Social Hx: Reviewed Nursing Past Med/Soc Hx Patient Social History Alcohol Use: Occasionally Uses Number of Drinks Today: 1 Alcohol Beverage of Choice: Beer Recreational Drug Use: Yes (meth yesterday, no benzos in 48 hrs) Drug of Choice: meth, benzos Smoking Status: Current Everyday Smoker Type Used: Cigarettes Recent Foreign Travel: No Contact w/Someone Who Travel: No Recent Infectious Disease Expo: No Recent Hopitalizations: No Physical Abuse: No Sexual Abuse: No Seasonal Allergies Seasonal Allergies: No Past Medical History Surgeries: Yes Orthopedic Respiratory: No Cardiac: No Neurological: No Reproductive Disorders: No Genitourinary: No Gastrointestinal: No Musculoskeletal: No Endocrine: No Psychosocial: Yes Anxiety, Depression Integumentary: No Blood Disorders: No Family Medical History Reviewed Nursing Family Hx Physical Exam Vital Signs Vital Signs - First Documented 03/30/18 14:21 Temp 100.3 Pulse 145 Resp 23 B/P (MAP) 137/80 (99) Pulse Ox 97 O2 Delivery Room Air Capillary Refill : Less Than 3 Seconds Height, Weight, BMI Height: 5'11.00" Weight: 175lbs. oz. 79.369530po; BMI Method:Estimated General Appearance: No Apparent Distress, WD/WN, Thin Eyes: Bilateral Eye Normal Inspection, Bilateral Eye PERRL, Bilateral Eye EOMI HEENT: PERRL/EOMI, TMs Normal, Normal ENT Inspection, Pharynx Normal Neck: Full Range of Motion, Non Tender Respiratory: Chest Non Tender, Lungs Clear, Normal Breath Sounds, No Accessory Muscle Use, No Respiratory Distress Cardiovascular: No Edema, No Gallop, No JVD, No Murmur, Normal Peripheral Pulses, Tachycardia Gastrointestinal: Normal Bowel Sounds, No Organomegaly, No Pulsatile Mass, Non Tender, Soft Extremity: Normal Capillary Refill Neurologic/Psychiatric: Alert, Oriented x3, Normal Mood/Affect Skin: Normal Color, Warm/Dry, Other (track allison to AC spaces bilat) Lymphatic: No Adenopathy Comments no nuchal rigidity Focused Exam Lactate Level 03/30/18 14:44: Lactic Acid Level 2.44*H 03/30/18 20:22: Lactic Acid Level 2.65*H 03/30/18 22:38: Lactic Acid Level 1.43 Lactic Acid Level Laboratory Tests Test 03/30/18 22:38 Lactic Acid Level 1.43 MMOL/L (0.50-2.00) Progress/Results/Core Measures Suspected Sepsis Recent Fever Within 48 Hours: Yes Infection Criteria Present: None New/Unexplained Altered Menta: No Sepsis Screen: No Definite Risk SIRS Temperature:100.3 Pulse: 145 Respiratory Rate: 23 Laboratory Tests 03/30/18 14:44: White Blood Count 2.2L Blood Pressure 137 /80 Mean: 99 03/30/18 14:44: Lactic Acid Level 2.44*H 03/30/18 20:22: Lactic Acid Level 2.65*H 03/30/18 22:38: Lactic Acid Level 1.43 Laboratory Tests 03/30/18 14:44: Creatinine 1.06, INR Comment 1.0, Platelet Count 177, Total Bilirubin 1.2H Results/Orders Lab Results Laboratory Tests Test 03/30/18 14:44 03/30/18 16:10 03/30/18 20:22 03/30/18 22:38 Range/Units White Blood Count 2.2 L 4.3-11.0 10^3/uL Red Blood Count 5.25 4.35-5.85 10^6/uL Hemoglobin 15.9 13.3-17.7 G/DL Hematocrit 47 40-54 % Mean Corpuscular Volume 89 80-99 FL Mean Corpuscular Hemoglobin 30 25-34 PG Mean Corpuscular Hemoglobin Concent 34 32-36 G/DL Red Cell Distribution Width 12.8 10.0-14.5 % Platelet Count 177 130-400 10^3/uL Mean Platelet Volume 9.4 7.4-10.4 FL Neutrophils (%) (Auto) 87 H 42-75 % Lymphocytes (%) (Auto) 12 12-44 % Monocytes (%) (Auto) 1 0-12 % Eosinophils (%) (Auto) 0 0-10 % Basophils (%) (Auto) 0 0-10 % Neutrophils # (Auto) 1.9 1.8-7.8 X 10^3 Lymphocytes # (Auto) 0.3 L 1.0-4.0 X 10^3 Monocytes # (Auto) 0.0 0.0-1.0 X 10^3 Eosinophils # (Auto) 0.0 0.0-0.3 10^3/uL Basophils # (Auto) 0.0 0.0-0.1 10^3/uL Neutrophils % (Manual) 61 % Lymphocytes % (Manual) 22 % Monocytes % (Manual) 0 % Eosinophils % (Manual) 0 % Basophils % (Manual) 0 % Band Neutrophils 17 % Blood Morphology Comment NORMAL Prothrombin Time 13.3 12.2-14.7 SEC INR Comment 1.0 0.8-1.4 Activated Partial Thromboplast Time 27 24-35 SEC Sodium Level 139 135-145 MMOL/L Potassium Level 3.8 3.6-5.0 MMOL/L Chloride Level 103 98-107 MMOL/L Carbon Dioxide Level 23 21-32 MMOL/L Anion Gap 13 5-14 MMOL/L Blood Urea Nitrogen 13 7-18 MG/DL Creatinine 1.06 0.60-1.30 MG/DL Estimat Glomerular Filtration Rate > 60 BUN/Creatinine Ratio 12 Glucose Level 86 70-105 MG/DL Lactic Acid Level 2.44 *H 2.65 *H 1.43 0.50-2.00 MMOL/L Calcium Level 9.8 8.5-10.1 MG/DL Corrected Calcium 9.4 8.5-10.1 MG/DL Total Bilirubin 1.2 H 0.1-1.0 MG/DL Aspartate Amino Transf (AST/SGOT) 12 5-34 U/L Alanine Aminotransferase (ALT/SGPT) 17 0-55 U/L Alkaline Phosphatase 61 40-136 U/L Total Creatine Kinase 92 30-200 U/L C-Reactive Protein High Sensitivity 3.00 H 0.00-0.50 MG/DL Total Protein 7.4 6.4-8.2 GM/DL Albumin 4.5 3.2-4.5 GM/DL Serum Alcohol 33 H <10 MG/DL Urine Color YELLOW Urine Clarity CLEAR Urine pH 5 5-9 Urine Specific [place] 1.020 1.016-1.022 Urine Protein NEGATIVE NEGATIVE Urine Glucose (UA) NEGATIVE NEGATIVE Urine Ketones NEGATIVE NEGATIVE Urine Nitrite NEGATIVE NEGATIVE Urine Bilirubin NEGATIVE NEGATIVE Urine Urobilinogen NORMAL NORMAL MG/DL Urine Leukocyte Esterase 1+ H NEGATIVE Urine RBC (Auto) NEGATIVE NEGATIVE Urine RBC NONE /HPF Urine WBC 2-5 /HPF Urine Crystals NONE /LPF Urine Bacteria TRACE /HPF Urine Casts NONE /LPF Urine Mucus TRACE /LPF Urine Culture Indicated NO Urine Opiates Screen NEGATIVE NEGATIVE Urine Oxycodone Screen NEGATIVE NEGATIVE Urine Methadone Screen NEGATIVE NEGATIVE Urine Propoxyphene Screen NEGATIVE NEGATIVE Urine Barbiturates Screen NEGATIVE NEGATIVE Ur Tricyclic Antidepressants Screen NEGATIVE NEGATIVE Urine Phencyclidine Screen NEGATIVE NEGATIVE Urine Amphetamines Screen POSITIVE H NEGATIVE Urine Methamphetamines Screen POSITIVE H NEGATIVE Urine Benzodiazepines Screen POSITIVE H NEGATIVE Urine Cocaine Screen NEGATIVE NEGATIVE Urine Cannabinoids Screen POSITIVE H NEGATIVE Micro Results Microbiology 03/30/18 Influenza Types A,B Antigen (IDA) - Final, Complete My Orders Orders - DASHAWN LUTZ Cbc With Automated Diff (03/30/18 14:26) Comprehensive Metabolic Panel (03/30/18 14:26) Blood Culture (03/30/18 14:26) Sputum Culture (03/30/18 14:26) Urinalysis (03/30/18 14:26) Urine Culture (03/30/18 14:26) Protime With Inr (03/30/18 14:26) Partial Thromboplastin Time (03/30/18 14:26) Chest 1 View, Ap/Pa Only (03/30/18 14:26) Saline Lock/Iv-Start (03/30/18 14:26) Saline Lock/Iv-Start (03/30/18 14:26) O2 (03/30/18 14:26) Remove Rings In Anticipation O (03/30/18 14:26) Lactic Acid Analyzer (03/30/18 14:26) Creatine Kinase (03/30/18 14:26) Hs C Reactive Protein (03/30/18 14:26) Acetaminophen Tablet (Tylenol Tablet) (03/30/18 14:30) Ibuprofen Tablet (Motrin Tablet) (03/30/18 14:30) Ns Iv 1000 Ml (Sodium Chloride 0.9%) (03/30/18 14:30) Influenza A And B Antigens (03/30/18 14:30) Lorazepam Injection (Ativan Injection) (03/30/18 15:00) Drug Screen Stat (Urine) (03/30/18 14:55) Ekg Tracing (03/30/18 14:57) Manual Differential (03/30/18 14:44) Alcohol (03/30/18 15:13) Ns Iv 1000 Ml (Sodium Chloride 0.9%) (03/30/18 16:30) Ns Iv 1000 Ml (Sodium Chloride 0.9%) (03/30/18 16:30) Diphenhydramine Injection (Benadryl Inje (03/30/18 17:30) Cefepime Injection (Maxipime Injection) (03/30/18 17:30) Medications Given in ED Current Medications Medications Dose Ordered Sig/Blu Route Start Time Stop Time Status Last Admin Dose Admin Acetaminophen 1,000 mg ONCE ONCE PO 03/30/18 14:30 03/30/18 14:31 DC 03/30/18 14:34 1,000 MG Ibuprofen 800 mg ONCE ONCE PO 03/30/18 14:30 03/30/18 14:31 DC 03/30/18 14:34 800 MG Lorazepam 1 mg ONCE ONCE IVP 03/30/18 15:00 12 15:01 DC 12/5/18 15:03 1 MG Vital Signs/I&O 03/30/18 03/30/18 03/30/18 03/30/18 14:21 18:29 18:30 19:00 Temp 100.3 98.6 100.2 Pulse 145 138 122 130 Resp 23 14 22 B/P (MAP) 137/80 (99) 108/81 (90) 108/66 (80) Pulse Ox 97 95 100 O2 Delivery Room Air Room Air Room Air 03/30/18 03/30/18 19:45 19:45 Temp 98.1 Pulse 132 Resp 20 B/P (MAP) 107/68 (81) Pulse Ox 98 O2 Delivery Room Air Room Air Capillary Refill : Less Than 3 Seconds Blood Pressure Mean: 99 Progress Note : Time: 15:41 Progress Note Patient is feeling much better at this time. He is no longer febrile and his current temperature is 98.6 orally. He is no longer shivering, reports improvement pain at this time. 1730: I have discussed the case with Dr. Dorsey and she agrees to accept the patient to her services and to use the sepsis protocol for antibiotic coverage. The patient agrees with plan of care. ECG Initial ECG Impression Date: Mar 30, 2018 Initial ECG Impression Time: 15:20 Initial ECG Rate: 147 Initial ECG Rhythm: S.Tach Initial ECG Intervals: Normal Initial ECG Impression: Normal Initial ECG Comparisson: No Previous ECG Available Diagnostic Imaging Diagonstic Imaging: Xray Plain Films/CT/US/NM/MRI: chest Comments [facility] [place] [place], [place] NAME: AGUEDA [facility]MAN [facility] REC#: [id number] PT STATUS: REG ER : 1990 PHYSICIAN: DASHAWN LUTZ ADMIT DATE: 03/30/18/ER Signed Date of Exam:03/30/18 CHEST 1 VIEW, AP/PA ONLY INDICATION: Chest pain. TIME OF EXAM: 3:08 PM COMPARISON: No prior studies are available for comparison. FINDINGS: The heart size is normal. The pulmonary vascularity is unremarkable. The lungs are clear. No infiltrate, effusion or pneumothorax is detected. IMPRESSION: No acute cardiopulmonary process is detected. Dictated by: Dictated on workstation # [id number] Dict: 03/30/18 1528 Trans: 03/30/18 1533 [id number] Interpreted by: CHERRY BORJA MD Electronically signed by: CHERRY BORJA MD 03/30/18 1533 Reviewed: Reviewed by Me Departure Communication (Admissions) Time/Spoke to Admitting Phy: 17:32 Dr. Dorsey. Impression Primary Impression: Sepsis Additional Impression: Substance abuse Disposition: ADMITTED INPATIENT Condition: Stable/Unchanged Admissions Decision to Admit Reason: Admit from ER (General) Decision to Admit/Date: Mar 30, 2018 Time/Decision to Admit Time: 17:32 Departure-Patient Inst. Referrals: [facility] (PCP/Family) Primary Care Physician DASHAWN LUTZ Mar 30, 2018 15:42
[2018-03-30 16:19] LABS: BILIRUBIN,URINE NEGATIVE (NEGATIVE); CLARITY,URINE CLEAR; COLOR,URINE YELLOW; GLUCOSE, URINE (UA) NEGATIVE (NEGATIVE); KETONES,URINE NEGATIVE (NEGATIVE); LEUKOCYTE ESTERASE ,URINE 1+ (NEGATIVE); NITRITE,URINE NEGATIVE (NEGATIVE); PH,URINE 5 (5-9); PROTEIN,URINE NEGATIVE (NEGATIVE); UROBILINOGEN,URINE NORMAL (NORMAL)
[2018-03-30 16:25] LABS: BACTERIA,URINE TRACE /HPF
[2018-03-30] MEDS ORDERED: NS IV 1000 ML 1,000 ML IV SCH ×4 (16:30→20:15)
[2018-03-30 16:32] LABS: AMPHETAMINE SCREEN, URINE POSITIVE (NEGATIVE); BARBITURATE SCREEN URINE NEGATIVE (NEGATIVE); BENZODIAZEPINES SCREEN URINE POSITIVE (NEGATIVE); CANNABINOID SCREEN, URINE POSITIVE (NEGATIVE); COCAINE SCREEN URINE NEGATIVE (NEGATIVE); METHADONE STAT NEGATIVE (NEGATIVE); METHAMPHETAMINE SCREEN URINE S POSITIVE (NEGATIVE); OPIATE SCREEN URINE NEGATIVE (NEGATIVE); OXYCODONE STAT NEGATIVE (NEGATIVE); PROPOXYPHENE STAT NEGATIVE (NEGATIVE); TRICYCLIC ANTIDEPRESSANTS SCRE NEGATIVE (NEGATIVE)
[2018-03-30] MEDS ORDERED: diphenhydrAMINE 50 MG/ML INJ (BENADRYL) IVP ONE (17:30)
[2018-03-30] MEDS ORDERED: CEFEPIME INJECTION 1,000 MG in NS (IVPB) 50 ML IV SCH (17:30)
--- OUTSIDE RECORDS SUMMARY | 2018-03-30 17:50 | XMS REPORT | Continuity of Care Document ---
Author Author [facility] Organization [facility] Address Unknown Phone Unavailable Allergies Active Description Code Type Severity Reaction Onset Reported/Identified Relationship to Patient Clinical Status Yes NKA Drug N/A N/A Yes NO KNOWN DRUG ALLERGIES UNKNOWN NO KNOWN DRUG ALLERG Yes No Known Drug Allergies [id number] Drug Allergy Unknown N/A 09/20/2017 Medications There [...] NICOTINE DEPENDENCE, CIGARETTES, UNCOMPL 09/20/2017 SHEILA, SERGE PASSENGER CAR UPHOLSTERER APPRENTICE Ot F31.89 OTHER BIPOLAR DISORDER 09/20/2017 SHEILA, SERGE PASSENGER CAR UPHOLSTERER APPRENTICE Ot F41.9 ANXIETY DISORDER, UNSPECIFIED 03/17/2018 Jo-Ann Gonzalez 292.0 DRUG WITHDRAWAL 03/17/2018 Jo-Ann Gonzalez A 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, UNCOMPLICATED 03/17/2018 GonzalezJo-Ann Angelique W 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 Procedures Code [place] [id number] Emergency department visit for the JULISA Mendoza 08/15/2015 [id number] Emergency department visit for the JULISA Mendoza 10/05/2015 [id number] Emergency department visit for the JULISA Mendoza [...] >60.0 mL/min/1.73sq >60 Anion Gap 13 mmol/L BANNER ETHANOL, BLOOD - 10/05/15 02:35 Ethanol NOT [...] NEGATIVE NEGATIVE Urine propoxyphene detection NEGATIVE NEGATIVE Influenza virus A and B antigen detection - 03/30/18 14:31 FLU RESULT NEGATIVE FOR INFLUENZA A AND B ANTIGENS BY IA NRG PT panel in platelet poor plasma by coagulation assay - 03/30/18 14:44 Prothrombin time (PT) in platelet poor plasma by coagulation assay 13.3 s 12.2-14.7 INR in platelet poor plasma or blood by coagulation assay 1.0 0.8-1.4 Activated partial thromboplastin time (aPTT) in platelet poor plasma bycoagulation assay - 03/30/18 14:44 Activated partial thromboplastin time (aPTT) in platelet poor plasma bycoagulation assay 27 s 24-35 Complete blood count (CBC) with automated white blood cell (WBC) differential - 03/30/18 14:44 Blood leukocytes automated count (number/volume) 2.2 10*3/uL 4.3-11.0 Blood erythrocytes automated count (number/volume) 5.25 10*6/uL 4.35-5.85 Venous blood hemoglobin measurement (mass/volume) 15.9 g/dL 13.3-17.7 Blood hematocrit (volume fraction) 47 % 40-54 Automated erythrocyte mean corpuscular volume 89 [foz_us] 80-99 Automated erythrocyte mean corpuscular hemoglobin (mass per erythrocyte) 30 pg 25-34 Automated erythrocyte mean corpuscular hemoglobin concentration measurement ( mass/volume) 34 g/dL 32-36 Automated erythrocyte distribution width ratio 12.8 % 10.0-14.5 Automated blood platelet count (count/volume) 177 10*3/uL 130-400 Automated blood platelet mean volume measurement 9.4 [foz_us] 7.4-10.4 Automated blood neutrophils/100 leukocytes 87 % 42-75 Automated blood lymphocytes/100 leukocytes 12 % 12-44 Blood monocytes/100 leukocytes 1 % 0-12 Automated blood eosinophils/100 leukocytes 0 % 0-10 Automated blood basophils/100 leukocytes 0 % 0-10 Blood neutrophils automated count (number/volume) 1.9 10*3 1.8-7.8 Blood lymphocytes automated count (number/volume) 0.3 10*3 1.0-4.0 Blood monocytes automated count (number/volume) 0.0 10*3 0.0-1.0 Automated eosinophil count 0.0 10*3/uL 0.0-0.3 Automated blood basophil count (count/volume) 0.0 10*3/uL 0.0-0.1 Blood lactic acid measurement (moles/volume) - 03/30/18 14:44 Blood lactic acid measurement (moles/volume) 2.44 mmol/L 0.50-2.00 Comprehensive metabolic panel - 03/30/18 14:44 Serum or plasma sodium measurement (moles/volume) 139 mmol/L 135-145 Serum or plasma potassium measurement (moles/volume) 3.8 mmol/L 3.6-5.0 Serum or plasma chloride measurement (moles/volume) 103 mmol/L 98-107 Carbon dioxide 23 mmol/L 21-32 Serum or plasma anion gap determination (moles/volume) 13 mmol/L 5-14 Serum or plasma urea nitrogen measurement (mass/volume) 13 mg/dL 7-18 Serum or plasma creatinine measurement (mass/volume) 1.06 mg/dL 0.60-1.30 Serum or plasma urea nitrogen/creatinine mass ratio 12 NRG Serum or plasma creatinine measurement with calculation of estimated glomerular filtration rate > NRG Serum or plasma glucose measurement (mass/volume) 86 mg/dL 70-105 Serum or plasma calcium measurement (mass/volume) 9.8 mg/dL 8.5-10.1 Serum or plasma total bilirubin measurement (mass/volume) 1.2 mg/dL 0.1-1.0 Serum or plasma alkaline phosphatase measurement (enzymatic activity/volume) 61 U/L 40-136 Serum or plasma aspartate aminotransferase measurement (enzymatic activity/ volume) 12 U/L 5-34 Serum or plasma alanine aminotransferase measurement (enzymatic activity/volume ) 17 U/L 0-55 Serum or plasma protein measurement (mass/volume) 7.4 g/dL 6.4-8.2 Serum or plasma albumin measurement (mass/volume) 4.5 g/dL 3.2-4.5 CALCIUM CORRECTED 9.4 mg/dL 8.5-10.1 Serum or plasma creatine kinase measurement (enzymatic activity/volume) - 03/30 14:44 Serum or plasma creatine kinase measurement (enzymatic activity/volume) 92 U/L 30-200 Serum or plasma C reactive protein measurement (mass/volume) - 03/30/18 14:44 Serum or plasma C reactive protein measurement (mass/volume) 3.00 mg /dL 0.00-0.50 Blood manual differential performed detection - 03/30/18 14:44 Blood monocytes/100 leukocytes 0 % NRG Manual blood segmented neutrophils/100 leukocytes 61 % NRG Blood band neutrophils/100 leukocytes 17 % NRG Manual blood lymphocytes/100 leukocytes 22 % NRG Manual eosinophils/100 leukocytes in nose 0 % NRG Manual blood basophils/100 leukocytes 0 % NRG Blood erythrocyte morphology finding identification NORMAL NRG Serum or plasma ethanol measurement (mass/volume) - 03/30/18 14:44 Serum or plasma ethanol measurement (mass/volume) 33 mg/dL <10 Complete urinalysis with reflex to culture - 03/30/18 16:10 Urine color determination YELLOW NRG Urine clarity determination CLEAR NRG Urine pH measurement by test strip 5 5-9 Specific gravity of urine by test strip 1.020 1.016- 1.022 Urine protein assay by test strip, semi-quantitative NEGATIVE NEGATIVE Urine glucose detection by automated test strip NEGATIVE NEGATIVE Erythrocytes detection in urine sediment by light microscopy NEGATIVE NEGATIVE Urine ketones detection by automated test strip NEGATIVE NEGATIVE Urine nitrite detection by test strip NEGATIVE NEGATIVE Urine total bilirubin detection by test strip NEGATIVE NEGATIVE Urine urobilinogen measurement by automated test strip (mass/volume) NORMAL NORMAL Urine leukocyte esterase detection by dipstick 1+ NEGATIVE Automated urine sediment erythrocyte count by microscopy (number/high power field) NONE NRG Automated urine sediment leukocyte count by microscopy (number/high power field ) [HPF] NRG Bacteria detection in urine sediment by light microscopy TRACE NRG Crystals detection in urine sediment by light microscopy NONE NRG Casts detection in urine sediment by light microscopy NONE NRG Mucus detection in urine sediment by light microscopy TRACE NRG Complete urinalysis with reflex to culture NO NRG Urine drug screening test - 03/30/18 16:10 Urine phencyclidine detection by screening method NEGATIVE [...] Status Pt. Type Provider Facility Loc./Unit Complaint [id number] 10/16/2015 06:59:00 10/16/2015 13:37:00 [facility] [id number] 10/05/2015 01:01:00 10/05/2015 03:41:00 [facility] [id number] 08/15/2015 13:03:00 08/15/2015 14:45:00 DIS Emergency [facility] ER General Medical [id number] 03/17/2018 18:54:00 03/17/2018 19:55:00 DIS Outpatient Jo-Ann Gonzalez [facility] ER [id number] 09/20/2017 15:13:00 09/20/2017 17:32:00 DIS Emergency SERGE SOSA PASSENGER CAR UPHOLSTERER APPRENTICE [facility] ER MENTAL EVAL [id number] 07/11/2017 00:36:00 07/11/2017 01:03:00 DIS Emergency DANE MOTTA DO K [facility] ER HEAD INJ W LAC [id number] 03/30/2018 15:06:00 Document Registration [id number] 06/02/2017 17:50:00 06/02/2017 23:59:59 CLS Outpatient [facility]
[2018-03-30 18:30] VITALS: BP 108/66
[2018-03-30] MEDS ORDERED: NOREPINEPHRINE 4 MG in NS (IVPB) 250 ML IV SCH (18:43)
[2018-03-30] MEDS ORDERED: NS IV 1000 ML 2,381.37 ML IV ONE (18:45)
[2018-03-30] MEDS ORDERED: VANCOMYCIN 1,750 MG/NS 500 ML IVPB IV NR ×2 (19:00)
[2018-03-30] MEDS ORDERED: ONDANSETRON 4 MG/2 ML (SDV) Z0FRAN IV PRN (19:00)
[2018-03-30] MEDS ORDERED: CEFEPIME 1 GM/NS 50 ML IV NR ×2 (19:00)
[2018-03-30] MEDS ORDERED: CATHETER FLUSH 10 ML SYR IV PRN (19:15)
[2018-03-30] MEDS ORDERED: FLU QUADRIvalent (5+ YOA) 2018-2019 (AFLURIA) 0.5 ML IM ONE (19:30)
[2018-03-30 19:45] VITALS: BP 107/68
[2018-03-30] MEDS: LORazepam 0.5 MG (ATIVAN) TABLET PO PRN (20:11)
[2018-03-31 00:32] VITALS: BP 132/75
[2018-03-31] MEDS: NS IV 1000 ML 1,000 ML IV SCH ×4 (01:29→21:38)
[2018-03-31] MEDS ORDERED: NS IV 1000 ML 1,000 ML IV SCH (03:00)
[2018-03-31 04:12] VITALS: BP 127/74
[2018-03-31] MEDS: VANCOMYCIN 1250 MG/NS 250 ML IVPB IV SCH ×4 (06:13→19:53)
[2018-03-31 06:30] LABS: BASOPHILS % (AUTO) 0 % (0-10); EOSINOPHILS % (AUTO) 0 % (0-10); HEMATOCRIT 36 % (40-54); HEMOGLOBIN 12.4 G/DL (13.3-17.7); LYMPHOCYTES # (AUTO) 0.8 X 10^3 (1.0-4.0); LYMPHOCYTES % (AUTO) 8 % (12-44); MEAN CORPUSCULAR HEMOGLOBIN 31 PG (25-34); MEAN CORPUSCULAR HGB CONC 35 G/DL (32-36); MEAN CORPUSCULAR VOLUME 89 FL (80-99); MEAN PLATELET VOLUME 10.2 FL (7.4-10.4); MONOCYTES # (AUTO) 0.6 X 10^3 (0.0-1.0); MONOCYTES % (AUTO) 6 % (0-12); NEUTROPHILS # (AUTO) 8.6 X 10^3 (1.8-7.8); NEUTROPHILS % (AUTO) 86 % (42-75); PLATELET COUNT 145 10^3/uL (130-400); RED BLOOD COUNT 4.03 10^6/uL (4.35-5.85)
[2018-03-31 06:51] LABS: ALANINE AMINOTRANSFERASE 22 U/L (0-55); ALKALINE PHOSPHATASE 53 U/L (40-136); BILIRUBIN,TOTAL 0.5 MG/DL (0.1-1.0); BUN/CREATININE RATIO 17; CARBON DIOXIDE 17 MMOL/L (21-32); CHLORIDE 115 MMOL/L (98-107); CREATININE SERUM 0.86 MG/DL (0.60-1.30); GFR ESTIMATED > 60; GLUCOSE 100 MG/DL (70-105); POTASSIUM 3.8 MMOL/L (3.6-5.0); SODIUM 140 MMOL/L (135-145)
[2018-03-31 08:00] VITALS: BP 129/66
--- NOTE | 2018-03-31 10:46 | History & Physicial (CHS) ---
HPI History of Present Illness: 27 yo male admitted after calling EMS due to diffuse weakness and aching in his whole body, feeling feverish with fairly sudden onset around 10 am yesterday. He has a history of polysubstance abuse and reports last methamphetamine use was injection in left antecubital fossa the evening of 03/29. He denies any skin lesions or redness. He takes alprazolam that is not prescribed to him on a regular basis and has had seizures when he runs out in the past. He reports last alprazolam was about 2 days ago. He states he drinks 2 beers per day and reports last drink was the morning of admission. Today he states he is feeling very tired, but denies other concerns. He has been trying to get off of methamphetamine and alprazolam, reports he was kicked out of [facility] due to needing medical detox and was unable to be kept at [place] or [facility] in [place] last week due to being [place] resident. He is trying to get outpatient treatment at [facility], but got too sick before he made it. Source: patient Date seen by provider: Mar 31, 2018 Time Seen by Provider: 09:50 Attending Physician Marium Dorsey MD PCP Center/[facility] Consult Date of Admission Mar 30, 2018 at 17:00 Home Medications Home Medications Reviewed patient Home Medication Reconciliation performed by pharmacy medication reconciliations security technician and/or nursing. Patients Allergies have been reviewed. Allergies Coded Allergies: No Known Drug Allergies (Unverified , 09/20/17) EBV-Agkvum-Afomof Hx Patient Social History Alcohol Use: Regular Use Recreational Drug Use: Yes (meth, xanax, weed) Drug of Choice: meth, benzos Smoking Status: Current Everyday Smoker Type Used: Cigarettes Recent Foreign Travel: No Contact w/other who traveled: No Recent Hopitalizations: No Recent Infectious Disease Expo: No Physical Abuse Screen: No Sexual Abuse: No Past Medical History PMHx: Anxiety PSurgHx: Facial plastic surgery after cedric wire fence injury Family Medical History Significant Family History: No Pertinent Family Hx Review of Systems ([facility]) Constitutional: fever, malaise EENTM: No nose congestion, No throat pain Respiratory: No cough Cardiovascular: No chest pain Gastrointestinal: No abdominal pain, No constipation, No diarrhea, No nausea, No vomiting Genitourinary: No dysuria Musculoskeletal: muscle pain Skin: No rash Psychiatric/Neurological: Anxiety Reviewed Test Results Reviewed Test Results Lab Laboratory Tests Test 03/30/18 14:44 03/30/18 16:10 03/30/18 20:22 03/30/18 22:38 Range/Units White Blood Count 2.2 L 4.3-11.0 10^3/uL Red Blood Count 5.25 4.35-5.85 10^6/uL Hemoglobin 15.9 13.3-17.7 G/DL Hematocrit 47 40-54 % Mean Corpuscular Volume 89 80-99 FL Mean Corpuscular Hemoglobin 30 25-34 PG Mean Corpuscular Hemoglobin Concent 34 32-36 G/DL Red Cell Distribution Width 12.8 10.0-14.5 % Platelet Count 177 130-400 10^3/uL Mean Platelet Volume 9.4 7.4-10.4 FL Neutrophils (%) (Auto) 87 H 42-75 % Lymphocytes (%) (Auto) 12 12-44 % Monocytes (%) (Auto) 1 0-12 % Eosinophils (%) (Auto) 0 0-10 % Basophils (%) (Auto) 0 0-10 % Neutrophils # (Auto) 1.9 1.8-7.8 X 10^3 Lymphocytes # (Auto) 0.3 L 1.0-4.0 X 10^3 Monocytes # (Auto) 0.0 0.0-1.0 X 10^3 Eosinophils # (Auto) 0.0 0.0-0.3 10^3/uL Basophils # (Auto) 0.0 0.0-0.1 10^3/uL Neutrophils % (Manual) 61 % Lymphocytes % (Manual) 22 % Monocytes % (Manual) 0 % Eosinophils % (Manual) 0 % Basophils % (Manual) 0 % Band Neutrophils 17 % Blood Morphology Comment NORMAL Prothrombin Time 13.3 12.2-14.7 SEC INR Comment 1.0 0.8-1.4 Activated Partial Thromboplast Time 27 24-35 SEC Sodium Level 139 135-145 MMOL/L Potassium Level 3.8 3.6-5.0 MMOL/L Chloride Level 103 98-107 MMOL/L Carbon Dioxide Level 23 21-32 MMOL/L Anion Gap 13 5-14 MMOL/L Blood Urea Nitrogen 13 7-18 MG/DL Creatinine 1.06 0.60-1.30 MG/DL Estimat Glomerular Filtration Rate > 60 BUN/Creatinine Ratio 12 Glucose Level 86 70-105 MG/DL Lactic Acid Level 2.44 *H 2.65 *H 1.43 0.50-2.00 MMOL/L Calcium Level 9.8 8.5-10.1 MG/DL Corrected Calcium 9.4 8.5-10.1 MG/DL Total Bilirubin 1.2 H 0.1-1.0 MG/DL Aspartate Amino Transf (AST/SGOT) 12 5-34 U/L Alanine Aminotransferase (ALT/SGPT) 17 0-55 U/L Alkaline Phosphatase 61 40-136 U/L Total Creatine Kinase 92 30-200 U/L C-Reactive Protein High Sensitivity 3.00 H 0.00-0.50 MG/DL Total Protein 7.4 6.4-8.2 GM/DL Albumin 4.5 3.2-4.5 GM/DL Serum Alcohol 33 H <10 MG/DL Urine Color YELLOW Urine Clarity CLEAR Urine pH 5 5-9 Urine Specific [place] 1.020 1.016-1.022 Urine Protein NEGATIVE NEGATIVE Urine Glucose (UA) NEGATIVE NEGATIVE Urine Ketones NEGATIVE NEGATIVE Urine Nitrite NEGATIVE NEGATIVE Urine Bilirubin NEGATIVE NEGATIVE Urine Urobilinogen NORMAL NORMAL MG/DL Urine Leukocyte Esterase 1+ H NEGATIVE Urine RBC (Auto) NEGATIVE NEGATIVE Urine RBC NONE /HPF Urine WBC 2-5 /HPF Urine Crystals NONE /LPF Urine Bacteria TRACE /HPF Urine Casts NONE /LPF Urine Mucus TRACE /LPF Urine Culture Indicated NO Urine Opiates Screen NEGATIVE NEGATIVE Urine Oxycodone Screen NEGATIVE NEGATIVE Urine Methadone Screen NEGATIVE NEGATIVE Urine Propoxyphene Screen NEGATIVE NEGATIVE Urine Barbiturates Screen NEGATIVE NEGATIVE Ur Tricyclic Antidepressants Screen NEGATIVE NEGATIVE Urine Phencyclidine Screen NEGATIVE NEGATIVE Urine Amphetamines Screen POSITIVE H NEGATIVE Urine Methamphetamines Screen POSITIVE H NEGATIVE Urine Benzodiazepines Screen POSITIVE H NEGATIVE Urine Cocaine Screen NEGATIVE NEGATIVE Urine Cannabinoids Screen POSITIVE H NEGATIVE Test 03/31/18 01:20 03/31/18 06:11 Range/Units Lactic Acid Level 0.87 0.50-2.00 MMOL/L White Blood Count 10.0 4.3-11.0 10^3/uL Red Blood Count 4.03 L 4.35-5.85 10^6/uL Hemoglobin 12.4 #L 13.3-17.7 G/DL Hematocrit 36 L 40-54 % Mean Corpuscular Volume 89 80-99 FL Mean Corpuscular Hemoglobin 31 25-34 PG Mean Corpuscular Hemoglobin Concent 35 32-36 G/DL Red Cell Distribution Width 13.0 10.0-14.5 % Platelet Count 145 130-400 10^3/uL Mean Platelet Volume 10.2 7.4-10.4 FL Neutrophils (%) (Auto) 86 H 42-75 % Lymphocytes (%) (Auto) 8 L 12-44 % Monocytes (%) (Auto) 6 0-12 % Eosinophils (%) (Auto) 0 0-10 % Basophils (%) (Auto) 0 0-10 % Neutrophils # (Auto) 8.6 H 1.8-7.8 X 10^3 Lymphocytes # (Auto) 0.8 L 1.0-4.0 X 10^3 Monocytes # (Auto) 0.6 0.0-1.0 X 10^3 Eosinophils # (Auto) 0.0 0.0-0.3 10^3/uL Basophils # (Auto) 0.0 0.0-0.1 10^3/uL Sodium Level 140 135-145 MMOL/L Potassium Level 3.8 3.6-5.0 MMOL/L Chloride Level 115 #H 98-107 MMOL/L Carbon Dioxide Level 17 L 21-32 MMOL/L Anion Gap 8 5-14 MMOL/L Blood Urea Nitrogen 15 7-18 MG/DL Creatinine 0.86 0.60-1.30 MG/DL Estimat Glomerular Filtration Rate > 60 BUN/Creatinine Ratio 17 Glucose Level 100 70-105 MG/DL Calcium Level 8.0 L 8.5-10.1 MG/DL Corrected Calcium 8.8 8.5-10.1 MG/DL Total Bilirubin 0.5 0.1-1.0 MG/DL Aspartate Amino Transf (AST/SGOT) 23 5-34 U/L Alanine Aminotransferase (ALT/SGPT) 22 0-55 U/L Alkaline Phosphatase 53 40-136 U/L Total Protein 5.0 L 6.4-8.2 GM/DL Albumin 3.0 L 3.2-4.5 GM/DL Radiology CXR 03/30 no acute abnormality Physical Exam-(CHC) Physical Exam Vital Signs VS - Last 72 Hours, by Label 03/30/18 03/30/18 03/30/18 03/30/18 14:21 18:29 18:30 19:00 Temp 100.3 98.6 100.2 Pulse 145 138 122 130 Resp 23 14 22 B/P (MAP) 137/80 (99) 108/81 (90) 108/66 (80) Pulse Ox 97 95 100 O2 Delivery Room Air Room Air Room Air 03/30/18 03/30/18 03/31/18 03/31/18 19:45 19:45 00:32 01:00 Temp 98.1 98.6 Pulse 132 110 113 Resp 20 20 B/P (MAP) 107/68 (81) 132/75 (94) Pulse Ox 98 96 O2 Delivery Room Air Room Air Room Air 03/31/18 03/31/18 03/31/18 03/31/18 04:12 07:00 08:00 08:00 Temp 98.4 97.3 Pulse 109 86 95 Resp 20 16 B/P (MAP) 127/74 (91) 129/66 (87) Pulse Ox 97 97 97 O2 Delivery Room Air Room Air Room Air Capillary Refill : Less Than 3 Seconds General Appearance: WD/WN, no apparent distress Respiratory: lungs clear, normal breath sounds Cardiovascular: regular rate, rhythm, no murmur Gastrointestinal: normal bowel sounds, non tender, soft Extremities: no pedal edema Neurologic/Psychiatric: alert, normal mood/affect, other (no tremor) Skin: normal color, warm/dry Assessment/Plan Assessment/Plan Admission Status: Inpatient Order (span 2 midnights) Reason for Inpatient Admission: Suspected sepsis (1) Sepsis Status: Acute Assessment & Plan: Suspected sepsis based on fever, tachycardia and low WBC on arrival with lactate slightly elevated. However, no clear source of infection with nml CXR, UA and no cellulitis or other localizing signs and may be related to benzo, alcohol withdrawal and meth intoxication. Started on cefepime and vancomycin, will continue while awaiting blood culture results. Lactic acidosis resolved overnight after multiple fluid boluses and high IVF rate. Qualifiers: Qualified Codes: A41.9 - Sepsis, unspecified organism (2) Methamphetamine abuse Status: Chronic Assessment & Plan: Social work consult. (3) Alcohol use Status: Chronic Assessment & Plan: CIWA monitoring. (4) Benzodiazepine abuse Status: Chronic Assessment & Plan: CIWA monitoring as above, consider scheduled long acting benzodiazepine in order to taper slowly. (5) Anxiety Status: Chronic Assessment & Plan: Will work on getting outpatient treatment set up, anticipate may be difficult to treat given history of self-treatment with methamphetamine, alcohol and benzodiazepines. (6) DVT prophylaxis Status: Acute Assessment & Plan: Enoxaparin Clinical Quality Measures DVT/VTE Risk/Contraindication: Risk Factor Score Per Nursin RFS Level Per Nursing on Admit: 4+=Very High MARIUM DORSEY MD Mar 31, 2018 10:46
[2018-03-31] MEDS ORDERED: 1/2 NS IV SOLUTION 1,000 ML IV PRN (10:55)
[2018-03-31] MEDS ORDERED: ONDANSETRON 4 MG/2 ML (SDV) Z0FRAN IV PRN (11:00)
[2018-03-31] MEDS ORDERED: ANTACID SUSP 30 ML UDC (MYLANTA) PO PRN (11:00)
[2018-03-31] MEDS ORDERED: LORazepam INJ 2 MG/ML (ATIVAN) VIAL IM/IV PRN (11:00)
[2018-03-31] MEDS ORDERED: SENNA W/DOCUSATE (SENOKOT S) TABLET PO PRN (11:00)
[2018-03-31] MEDS ORDERED: ONDANSETRON 4 MG (ZOFRAN) ORAL DISSOLVE TAB SL PRN (11:00)
[2018-03-31] MEDS ORDERED: LORazepam INJ 2 MG/ML (ATIVAN) VIAL IV PRN (11:00)
[2018-03-31] MEDS ORDERED: D5 1/2 NS 1000 ML IV SOLUTION 1,000 ML IV PRN (11:00)
[2018-03-31 12:00] VITALS: BP 137/84
[2018-03-31] MEDS: LORazepam 1 MG (ATIVAN) TAB PO PRN ×4 (12:24→21:38)
[2018-03-31] MEDS: ENOXAPARIN 40 MG/0.4 ML (LOVENOX) SYR SC SCH (12:29)
[2018-03-31] MEDS ORDERED: NICOTINE 21 MG (NICODERM) PATCH ONE (12:34)
[2018-03-31] MEDS: NICOTINE 21 MG (NICODERM) PATCH TD SCH (12:37)
[2018-03-31 16:00] VITALS: BP 139/88
[2018-03-31] MEDS: CEFEPIME 2 GM/NS 50 ML IVPB IV SCH ×2 (18:30)
[2018-03-31 20:00] VITALS: BP 138/84
[2018-03-31] MEDS: MAGNESIUM OXIDE (MAG-OX)400 MG TAB PO SCH (21:22)
[2018-04-01 00:17] VITALS: BP 129/82
[2018-04-01] MEDS: LORazepam 0.5 MG (ATIVAN) TABLET PO PRN (02:32)
[2018-04-01] MEDS: NS IV 1000 ML 1,000 ML IV SCH (02:41)
[2018-04-01] MEDS ORDERED: ACETAMINOPHEN 500 MG TAB (TYLENOL) ONE (02:52)
[2018-04-01] MEDS ORDERED: diphenhydrAMINE 25 MG TAB (BENADRYL) PO ONE (02:52)
[2018-04-01] MEDS ORDERED: ACETAMINOPHEN 500 MG TAB (TYLENOL) PO PRN (03:00)
[2018-04-01] MEDS ORDERED: diphenhydrAMINE 25 MG TAB (BENADRYL) PO PRN (03:00)
[2018-04-01 03:44] VITALS: BP 129/85
[2018-04-01] MEDS: CEFEPIME 2 GM/NS 50 ML IVPB IV SCH ×2 (05:16)
[2018-04-01] MEDS: VANCOMYCIN 1250 MG/NS 250 ML IVPB IV SCH ×2 (06:27)
[2018-04-01 06:48] LABS: BASOPHILS % (AUTO) 0 % (0-10); EOSINOPHILS # (AUTO) 0.3 10^3/uL (0.0-0.3); EOSINOPHILS % (AUTO) 4 % (0-10); HEMATOCRIT 37 % (40-54); LYMPHOCYTES # (AUTO) 1.4 X 10^3 (1.0-4.0); LYMPHOCYTES % (AUTO) 20 % (12-44); MEAN CORPUSCULAR HEMOGLOBIN 30 PG (25-34); MEAN CORPUSCULAR HGB CONC 35 G/DL (32-36); MEAN CORPUSCULAR VOLUME 87 FL (80-99); MEAN PLATELET VOLUME 10.6 FL (7.4-10.4); MONOCYTES # (AUTO) 0.7 X 10^3 (0.0-1.0); MONOCYTES % (AUTO) 11 % (0-12); NEUTROPHILS # (AUTO) 4.5 X 10^3 (1.8-7.8); NEUTROPHILS % (AUTO) 65 % (42-75); PLATELET COUNT 141 10^3/uL (130-400); RED BLOOD COUNT 4.28 10^6/uL (4.35-5.85); RED CELL DISTRIBUTION WIDTH 12.5 % (10.0-14.5); WHITE BLOOD COUNT 6.8 10^3/uL (4.3-11.0)
[2018-04-01] MEDS ORDERED: MULTIVIT W/MINERALS TAB (THERAGRAN M) PO SCH (07:00)
[2018-04-01] MEDS ORDERED: THIAMINE 100 MG (VITAMIN B-1) TAB PO SCH (07:00)
[2018-04-01 07:10] LABS: ALANINE AMINOTRANSFERASE 49 U/L (0-55); ALBUMIN 3.2 GM/DL (3.2-4.5); ALKALINE PHOSPHATASE 65 U/L (40-136); BILIRUBIN,TOTAL 0.4 MG/DL (0.1-1.0); BUN/CREATININE RATIO 9; CALCIUM 8.4 MG/DL (8.5-10.1); CARBON DIOXIDE 20 MMOL/L (21-32); CHLORIDE 110 MMOL/L (98-107); CREATININE SERUM 0.85 MG/DL (0.60-1.30); GFR ESTIMATED > 60; GLUCOSE 108 MG/DL (70-105); POTASSIUM 3.5 MMOL/L (3.6-5.0); SODIUM 139 MMOL/L (135-145); TOTAL PROTEIN 5.4 GM/DL (6.4-8.2)
[2018-04-01 08:00] VITALS: BP 134/76
[2018-04-01] MEDS ORDERED: REMOVAL TP SCH (08:59)
[2018-04-01] MEDS ORDERED: FOLIC ACID 1 MG TAB PO SCH (09:00)
[2018-04-01] MEDS: MAGNESIUM OXIDE (MAG-OX)400 MG TAB PO SCH (10:07)
[2018-04-01] MEDS ORDERED: LORA1TAB PO (10:55)
--- NOTE | 2018-04-01 10:57 | Discharge Instructions ---
Discharge Inst-[facility] Discharge Medications New, Converted or Re-Newed RX: RX on Chart New Medications: Lorazepam (Lorazepam) 1 Mg Tablet 1 MG PO TID PRN for AGITATION, #8 TAB 0 Refills Patient Instructions Goal/Follow Up Appt: Follow up at [facility] for Addiction Treatment Services with Dai Barrett on Wednesday, Apr 05 at 2 pm. Patient Instructions: At your visit with ATS, they will determine whether further tapering will be done with ativan or not. Return to The Hospital For: Fever, inability to keep down medications Activity & Diet Discharge Diet: No Restrictions Activity as Tolerated: Yes MARIUM WALLER MD Apr 01, 2018 10:57
[2018-04-01] MEDS: NICOTINE 21 MG (NICODERM) PATCH TD SCH (11:18)
[2018-04-01] MEDS: ENOXAPARIN 40 MG/0.4 ML (LOVENOX) SYR SC SCH (11:18)
[2018-04-01 12:57] VITALS: BP 134/76
--- NOTE | 2018-04-03 15:26 | Discharge Summary ---
Diagnosis/Chief Complaint Date of Admission Mar 30, 2018 at 17:00 Date of Discharge Apr 01, 2018 at 11:50 Admission Diagnosis Admission Diagnosis (1) Sepsis (2) Methamphetamine abuse (3) Alcohol use (4) Benzodiazepine abuse (5) Anxiety Discharge Diagnosis See problem list Problems/Diagnosis: (1) Sepsis Assessment & Plan: Suspected sepsis based on fever, tachycardia and low WBC on arrival with lactate slightly elevated. However, no clear source of infection with nml CXR, UA and no cellulitis or other localizing signs and may be related to benzo, alcohol withdrawal and meth intoxication. Started on cefepime and vancomycin, will continue while awaiting blood culture results. Lactic acidosis resolved overnight after multiple fluid boluses and high IVF rate. On d/c, no positive cultures or source of infection, with rapid resolution, suspect related to methamphetamine use as opposed to infection, antibiotics not continued on d/c. Qualifiers: Qualified Codes: A41.9 - Sepsis, unspecified organism Status: Acute (2) Methamphetamine abuse Assessment & Plan: Social work consulted- patient declined to talk to them. Status: Chronic (3) Alcohol use Assessment & Plan: CIWA monitoring. Used 5.5 mg of lorazepam in the 24 hours before discharge, so he was given a script for up to 3 mg daily for the next 2.5 days to get to follow up appointment at [facility] for further discussion about tapering given his history of alprazolam use. Status: Chronic (4) Benzodiazepine abuse Assessment & Plan: CIWA monitoring as above, consider scheduled long acting benzodiazepine in order to taper slowly. Given small amount of lorazepam on d/c , see above. Discussed with him at length risks of taking too much benzo or combining with alcohol or other substances which may lead to respiratory depression or . He states his mother will keep the medications and dispense as needed and his girlfriend will help keep him safe through the weekend. Status: Chronic (5) Anxiety Assessment & Plan: Will work on getting outpatient treatment set up, anticipate may be difficult to treat given history of self-treatment with methamphetamine, alcohol and benzodiazepines. Status: Chronic Chief Complaint/HPI Chief Complaint/HPI 27 yo male admitted after calling EMS due to diffuse weakness and aching in his whole body, feeling feverish with fairly sudden onset around 10 am yesterday. He has a history of polysubstance abuse and reports last methamphetamine use was injection in left antecubital fossa the evening of 03/29. He denies any skin lesions or redness. He takes alprazolam that is not prescribed to him on a regular basis and has had seizures when he runs out in the past. He reports last alprazolam was about 2 days ago. He states he drinks 2 beers per day and reports last drink was the morning of admission. Today he states he is feeling very tired, but denies other concerns. He has been trying to get off of methamphetamine and alprazolam, reports he was kicked out of [facility] due to needing medical detox and was unable to be kept at [place] or [facility] in [place] last week due to being [place] resident. He is trying to get outpatient treatment at [facility], but got too sick before he made it. Discharge Summary-Simple/Stand Consultations Discharge Physical Examination Allergies: Coded Allergies: No Known Drug Allergies (Unverified , 09/20/17) Vitals & I&Os Vital Sign - Last 12Hours Date Time Temp Pulse Resp B/P (MAP) Pulse Ox O2 Delivery O2 Flow Rate FiO2 04/01/18 12:57 84 18 134/76 99 Room Air 04/01/18 08:00 97.4 General Appearance: Alert, No Acute Distress Respiratory: Clear to Auscultation, Normal Air Movement Cardiovascular: Regular Rate, No Murmurs Neuro: Normal Speech, Other Psych/Mental Status: Mental Status NL Hospital Course See final discharge diagnosis. Radiology Reviewed CXR 03/30 no acute abnormality Discharge Instructions to patient/family Please see electronic discharge instructions given to patient. Discharge Medications Reviewed and agree with Discharge Medication list on patient's Discharge Instruction sheet Clinical Quality Measures DVT/VTE Risk/Contraindication: Risk Factor Score Per Nursin RFS Level Per Nursing on Admit: 4+=Very High Copy Copies To 1: JULIA JENKINS BETHANY N MD Apr 03, 2018 15:26
[2018-04-04 07:50] LABS: HEPATITIS C ANTIBODY C Non-Reactive (Non-Reactive)
== END 2018-04-01 11:50 | disposition home or self-care (01) | DRG 897 ==
LOC: EDUNIT# 14:21 → ER 14:22 → 4TH 17:00
PROVIDERS: ADMIT Family Medicine; ATTEND Family Medicine
DX: F15.10 Other stimulant abuse, uncomplicated (principal); Z72.89 Other problems related to lifestyle; F13.10 Sedative, hypnotic or anxiolytic abuse, uncomplicated; F41.9 Anxiety disorder, unspecified; F32.9 Major depressive disorder, single episode, unspecified; F17.210 Nicotine dependence, cigarettes, uncomplicated
CPT/HCPCS: 36415; 71045; 80053; 80306; 80320; 81000; 82550; 83605; 85007; 85025; 85027; 85610; 85730; 86141; 86703; 86803; 87040; 87088; 87340; 87804; 93005; 96361; 96365; 96375

== ENCOUNTER → 2018-05-24 | Emergency (ER) | payer SELFPAY ==
[~2018-05-24] VITALS: Ht 182.9 cm; Wt 79.4 kg
[~2018-05-24] MED LIST: ALPRAZolam 0.5 MG (XANAX) TAB ONE; LORA1TAB PO; NS IV 1000 ML 1,000 ML IV ONE
--- NOTE | 2018-05-24 13:35 | NUR ---
AFTER LENGTHY CONVERSATION W PT HAS DECIDED HE WILL TAKE PO XANAX 1MG, [facility] HAS ONLY .5MG, PT SHOWN PACKAGE STATES WILL TAKE, MED PLACED IN MED CUP PT LOOKS AT THEM, THEN REFUSED TO TAKE WHEN LOOKED IN MED CUP ONE OF MEDS IS MISSING, PT STATES DID NOT TAKE, THEN STATES HE HAS TAKEN WHEN SWALLOWED SIP OF WATER. EXPLAINED TO PT THAT HE NEEDS TO QUIT LYING TO STAFF THAT WE ARE TRYING TO PROVIDE MEDICAL CARE. NOTIFIED OF PT BEHAVIOR.
[2018-05-24 13:42] LABS: BASOPHILS % (AUTO) 1 % (0-10); EOSINOPHILS # (AUTO) 0.1 10^3/uL (0.0-0.3); EOSINOPHILS % (AUTO) 1 % (0-10); HEMATOCRIT 43 % (40-54); HEMOGLOBIN 14.6 G/DL (13.3-17.7); LYMPHOCYTES # (AUTO) 1.6 X 10^3 (1.0-4.0); LYMPHOCYTES % (AUTO) 24 % (12-44); MEAN CORPUSCULAR HEMOGLOBIN 30 PG (25-34); MEAN CORPUSCULAR HGB CONC 34 G/DL (32-36); MEAN CORPUSCULAR VOLUME 87 FL (80-99); MEAN PLATELET VOLUME 10.2 FL (7.4-10.4); MONOCYTES # (AUTO) 0.6 X 10^3 (0.0-1.0); MONOCYTES % (AUTO) 9 % (0-12); NEUTROPHILS # (AUTO) 4.3 X 10^3 (1.8-7.8); NEUTROPHILS % (AUTO) 66 % (42-75); PLATELET COUNT 273 10^3/uL (130-400); RED CELL DISTRIBUTION WIDTH 12.8 % (10.0-14.5); WHITE BLOOD COUNT 6.6 10^3/uL (4.3-11.0)
[2018-05-24 13:50] VITALS: BP 144/96
--- NOTE | 2018-05-24 13:50 | NUR ---
PT STATES HE IS NOT 27. PT STATES HE SNORTED METH NOT ATE IT. PT STATES HE IS NOT AT HOSPITAL, REFUSES TO SIGN AMA FORM. PT PULLED OWN IV OUT AFTER STAFF REQUESTING TO ALLOW STAFF TO REMOVE. PT BLED DOWN ARM ONTO FLOOR AND CHAIR. PT LEFT OUT BACK DOORS AFTER STAFF REQUESTING HIM TO LEAVE OUT FRONT DOOR. PPD NOTIFIED OF PT LEAVING ED WITH BEING MEDICALLY CLEARED.
--- NOTE | 2018-05-24 13:55 | ED Psychosocial ---
General Chief Complaint: Substance Abuse Stated Complaint: CONFUSION Source: patient, EMS Exam Limitations: physical impairment History of Present Illness Date Seen by Provider: May 24, 2018 Time Seen by Provider: 13:21 Initial Comments This 27-year-old man presents to the emergency room via EMS after being found by a convenience store workers to have unusual behavior and altered mental status. Patient apparently did agree to come to the emergency room but now he does not want to be evaluated or treated. He admits to using methamphetamines by oral ingestion yesterday. He is now paranoid and tachycardic. He has history of mental illness and is treated in the behavioral health program at [facility]. Allergies and Home Medications Allergies Coded Allergies: No Known Drug Allergies (Unverified , 09/20/17) Home Medications Lorazepam 1 Mg Tablet, 1 MG PO TID PRN for AGITATION Prescribed by: MARIUM WALLER on 04/01/18 1056 Patient Home Medication List Home Medication List Reviewed: Yes Review of Systems Constitutional: no symptoms reported EENTM: no symptoms reported Respiratory: no symptoms reported Cardiovascular: no symptoms reported Gastrointestinal: no symptoms reported Genitourinary: no symptoms reported Musculoskeletal: no symptoms reported Skin: no symptoms reported Psychiatric/Neurological: See HPI Past Fsgmuew-Hdybmz-Ihrbgj Hx Patient Social History Alcohol Beverage of Choice: Beer Drug of Choice: meth, benzos Type Used: Cigarettes Recent Hopitalizations: No Seasonal Allergies Seasonal Allergies: No Past Medical History Surgeries: Yes Orthopedic Respiratory: No Cardiac: No Neurological: No Reproductive Disorders: No Genitourinary: No Gastrointestinal: No Musculoskeletal: No Endocrine: No Cancer: No Psychosocial: Yes Anxiety, Depression Integumentary: No Blood Disorders: No Family Medical History No Pertinent Family Hx Physical Exam Vital Signs - First Documented 05/24/18 13:20 Pulse 128 Resp 18 B/P (MAP) 144/96 (112) Pulse Ox 99 Capillary Refill : Height, Weight, BMI Height: 5'11.00" Weight: 160lbs. 0.0oz. 72.849765vo; 22.3 BMI Method:Estimated General Appearance: WD/WN, mild distress (Paranoid, anxious) HEENT: PERRL/EOMI, normal ENT inspection, pharynx normal Neck: normal inspection Respiratory: lungs clear, normal breath sounds, no respiratory distress, no accessory muscle use Cardiovascular: no edema, no murmur, tachycardia Gastrointestinal: normal bowel sounds, non tender, soft Extremities: normal inspection, no pedal edema Neurologic/Psychiatric: key sander II-XII nml as tested, no motor/sensory deficits, alert, oriented x 3, other (anxious and paranoid) Appearance/Memory: appropriate appearance, impaired insight Behavior/Eye Contact: avoids eye contact, uncooperative Thoughts/Hallucinations: paranoid Skin: normal color, warm/dry Progress/Results/Core Measures Results/Orders Lab Results Laboratory Tests Test 05/24/18 13:30 Range/Units White Blood Count 6.6 4.3-11.0 10^3/uL Red Blood Count 4.92 4.35-5.85 10^6/uL Hemoglobin 14.6 13.3-17.7 G/DL Hematocrit 43 40-54 % Mean Corpuscular Volume 87 80-99 FL Mean Corpuscular Hemoglobin 30 25-34 PG Mean Corpuscular Hemoglobin Concent 34 32-36 G/DL Red Cell Distribution Width 12.8 10.0-14.5 % Platelet Count 273 130-400 10^3/uL Mean Platelet Volume 10.2 7.4-10.4 FL Neutrophils (%) (Auto) 66 42-75 % Lymphocytes (%) (Auto) 24 12-44 % Monocytes (%) (Auto) 9 0-12 % Eosinophils (%) (Auto) 1 0-10 % Basophils (%) (Auto) 1 0-10 % Neutrophils # (Auto) 4.3 1.8-7.8 X 10^3 Lymphocytes # (Auto) 1.6 1.0-4.0 X 10^3 Monocytes # (Auto) 0.6 0.0-1.0 X 10^3 Eosinophils # (Auto) 0.1 0.0-0.3 10^3/uL Basophils # (Auto) 0.0 0.0-0.1 10^3/uL Sodium Level 143 135-145 MMOL/L Potassium Level 3.8 3.6-5.0 MMOL/L Chloride Level 107 98-107 MMOL/L Carbon Dioxide Level 23 21-32 MMOL/L Anion Gap 13 5-14 MMOL/L Blood Urea Nitrogen 17 7-18 MG/DL Creatinine 1.24 0.60-1.30 MG/DL Estimat Glomerular Filtration Rate > 60 BUN/Creatinine Ratio 14 Glucose Level 101 70-105 MG/DL Calcium Level 10.0 8.5-10.1 MG/DL Corrected Calcium 8.5-10.1 MG/DL Magnesium Level 2.1 1.8-2.4 MG/DL Total Bilirubin 1.2 H 0.1-1.0 MG/DL Aspartate Amino Transf (AST/SGOT) 16 5-34 U/L Alanine Aminotransferase (ALT/SGPT) 14 0-55 U/L Alkaline Phosphatase 50 40-136 U/L Total Protein 7.5 6.4-8.2 GM/DL Albumin 4.6 H 3.2-4.5 GM/DL Serum Alcohol < 10 <10 MG/DL My Orders Orders - XAVIER CAMARENA MD Alcohol (05/24/18 13:35) Cbc With Automated Diff (05/24/18 13:35) Comprehensive Metabolic Panel (05/24/18 13:35) Magnesium (05/24/18 13:35) Monitor-Rhythm Ecg Trace Only (05/24/18 13:35) Saline Lock/Iv-Start (05/24/18 13:35) Ns Iv 1000 Ml (Sodium Chloride 0.9%) (05/24/18 13:35) Alprazolam Tablet (Xanax Tablet) (05/24/18 13:33) Medications Given in ED Current Medications Medications Dose Ordered Sig/Blu Route Start Time Stop Time Status Last Admin Dose Admin Alprazolam 0.5 mg STK-MED ONCE .ROUTE 05/24/18 13:33 05/24/18 13:37 DC 05/24/18 13:35 0.5 MG Vital Signs/I&O 05/24/18 05/24/18 13:20 13:50 Pulse 128 128 Resp 18 18 B/P (MAP) 144/96 (112) 144/96 (112) Pulse Ox 99 99 Progress Progress Note : Progress Note After much discussion, patient did consent to vital signs and lab work. He was offered medication to help him with his anxiety. Xanax was ordered. Patient took one of the tablets and gave the second tablet back. He stated he did not take the medication but he did take one of the pills. Patient ultimately became uncooperative and demanded to leave. His IV was removed. He refused to sign the AMA papers. Police were notified of his departure for his welfare. Departure Impression Primary Impression: Methamphetamine abuse Additional Impressions: Paranoia Tachycardia Disposition: 07 AGAINST MEDICAL ADVICE Condition: Improved Departure-Patient Inst. Referrals: [facility] (PCP) Primary Care Physician Patient Instructions: ALCOHOL AND SUBSTANCE ABUSE XAVIER CAMARENA MD May 24, 2018 13:55
--- NOTE | 2018-05-24 13:55 | NUR ---
PPD NOTIFIED OF PT LEAVING AGAINST MEDICAL ADVICE
[2018-05-24 14:02] LABS: ALANINE AMINOTRANSFERASE 14 U/L (0-55); ALBUMIN 4.6 GM/DL (3.2-4.5); ALKALINE PHOSPHATASE 50 U/L (40-136); BILIRUBIN,TOTAL 1.2 MG/DL (0.1-1.0); BUN/CREATININE RATIO 14; CARBON DIOXIDE 23 MMOL/L (21-32); CHLORIDE 107 MMOL/L (98-107); CREATININE SERUM 1.24 MG/DL (0.60-1.30); GFR ESTIMATED > 60; GLUCOSE 101 MG/DL (70-105); MAGNESIUM 2.1 MG/DL (1.8-2.4); POTASSIUM 3.8 MMOL/L (3.6-5.0); SODIUM 143 MMOL/L (135-145); TOTAL PROTEIN 7.5 GM/DL (6.4-8.2)
== END | disposition left against medical advice (07) ==
LOC: EDUNIT# 13:20 → ER 13:21
DX: F15.10 Other stimulant abuse, uncomplicated (principal); F22 Delusional disorders; R00.0 Tachycardia, unspecified; F41.9 Anxiety disorder, unspecified; F32.9 Major depressive disorder, single episode, unspecified
CPT/HCPCS: 36415; 80053; 80320; 83735; 85025

== ENCOUNTER 2018-08-15 19:17 | Emergency (ER) | payer SELFPAY ==
[~2018-08-15] VITALS: Ht 182.9 cm; Wt 70.8 kg
[~2018-08-15 19:17] MED LIST changes: -ALPRAZolam 0.5 MG (XANAX) TAB ONE; -NS IV 1000 ML 1,000 ML IV ONE
--- NOTE | 2018-08-15 19:36 | ED Upper Extremity ---
General Chief Complaint: Upper Extremity Stated Complaint: L HAND INJ Nursing Triage Note: PATIENT AMBULATORY TO ER FT1 WITH COMPLAINT OF LEFT HAND INJURY AFTER PUNCHING A WALL 1 HOUR AGO. PATIETN HAS DRIED BLOOD TO LEFT HAND WITH SWELLING PRESENT. Nursing Sepsis Screen: No Definite Risk Source: patient Exam Limitations: no limitations History of Present Illness Date Seen by Provider: Aug 15, 2018 Time Seen by Provider: 19:36 Initial Comments 27-year-old male who presents to the emergency room with complaints of left hand pain after punching a wall 1 hour prior to arrival. He has abrasions over the third PIP joint with some dry blood. No obvious deformity noted. Normal capillary refill. Onset: just prior to arrival Pain/Injury Location: left hand Method of Injury: direct blow Modifying Factors: Worse With Movement Allergies and Home Medications Allergies Coded Allergies: No Known Drug Allergies (Unverified , 09/20/17) Home Medications Lorazepam 1 Mg Tablet, 1 MG PO TID PRN for AGITATION Prescribed by: MARIUM WALLER on 04/01/18 1055 Patient Home Medication List Home Medication List Reviewed: Yes Review of Systems Constitutional: see HPI; No chills, No fever Skin: see HPI, other (abrasion to left hand) All Other Systems Reviewed Negative Unless Noted: Yes Past Nxycnmq-Whbsia-Fkrjqg Hx Past Med/Social Hx: Reviewed Nursing Past Med/Soc Hx Patient Social History Alcohol Beverage of Choice: Beer Drug of Choice: meth, benzos Type Used: Cigarettes Recent Foreign Travel: No Contact w/Someone Who Travel: No Recent Infectious Disease Expo: No Recent Hopitalizations: No Seasonal Allergies Seasonal Allergies: No Past Medical History Surgeries: Yes Orthopedic Respiratory: No Cardiac: No Neurological: No Reproductive Disorders: No Genitourinary: No Gastrointestinal: No Musculoskeletal: No Endocrine: No Cancer: No Psychosocial: Yes Anxiety, Depression Integumentary: No Blood Disorders: No Family Medical History Reviewed Nursing Family Hx No Pertinent Family Hx Physical Exam Vital Signs Vital Signs - First Documented 08/15/18 19:20 Temp 98.2 Pulse 125 Resp 18 B/P (MAP) 132/86 (101) Pulse Ox 98 O2 Delivery Room Air Capillary Refill : Less Than 3 Seconds Height, Weight, BMI Height: 6'0" Weight: 156lbs. 0.0oz. 70.056132hr; 22.3 BMI Method:Actual General Appearance: WD/WN, no apparent distress Cardiovascular: normal peripheral pulses, regular rate, rhythm, no edema, no gallop, no JVD, no murmur Respiratory: chest non-tender, lungs clear, normal breath sounds, no respiratory distress, no accessory muscle use Hand: Left, abrasions (to dorsal surface of left hand), ecchymosis Neurologic/Psychiatric: alert, normal mood/affect, oriented x 3 Skin: normal color, warm/dry Progress/Results/Core Measures Results/Orders My Orders Orders - DASHAWN LUTZ Hand, Left, 3 Views (08/15/18 19:35) Vital Signs/I&O 08/15/18 19:20 Temp 98.2 Pulse 125 Resp 18 B/P (MAP) 132/86 (101) Pulse Ox 98 O2 Delivery Room Air Blood Pressure Mean: 101 Progress Progress Note : Time: 20:03 Progress Note I have seen and evaluated the patient. I've informed him of his imaging studies. His abrasion was cleaned with chlorhexidine scrub and a sterile dressing of triple antibiotic ointment and Telfa was applied. He agrees with plan of care, plans for discharge, return precautions were given. He requested testing for AIDS at this time and he was referred to his primary care provider. He denies symptoms for further testing at this time. Diagnostic Imaging Diagonstic Imaging: Xray Plain Films/CT/US/NM/MRI: hand Comments [facility] [place], [place] NAME: AGUEDA NEWMAN [facility] REC#: [id number] PT STATUS: REG ER : 1990 PHYSICIAN: DASHAWN LUTZ [facility] ADMIT DATE: 08/15/18/ER Draft Date of Exam:08/15/18 HAND, LEFT, 3 VIEWS INDICATION: Hand pain and swelling after punching a wall several times. TECHNIQUE: Three views of the right hand. CORRELATION STUDY: None FINDINGS: There is normal alignment and appearance of the osseous structures of the hand. The joint spaces are maintained. There is no acute fracture. Visualized on the lateral projection, there is slight cortical irregularity along the dorsal aspect of the wrist. Majorities appears to be fairly well-corticated. No disproportionate soft tissue swelling. IMPRESSION: 1. Negative for acute bony abnormality of the hand. Bone density adjacent to the dorsal aspect of the wrist. This may reflect a previous/remote injury. Acute injury is considered less likely. However, correlation with site of pain is recommended. Dictated on workstation # [id number] Dict: 08/15/181948 Trans: 08/15/181957 SANTOSH [id number] Interpreted by: ERIKA DOZIER DO Electronically signed by: Reviewed: Reviewed by Me Departure Impression Primary Impression: Contusion of left hand Additional Impression: Abrasion Disposition: 01 HOME, SELF-CARE Condition: Stable/Unchanged Departure-Patient Inst. Decision time for Depature: 20:03 Referrals: [facility] (PCP/Family) Primary Care Physician Patient Instructions: Contusion (DC) Add. Discharge Instructions: Watch for signs of infection such as increased redness, swelling, drainage, pain. Ice to the sore areas at 20 minute intervals. Change the dressing twice a day over the left knuckle. Follow-up with your primary care provider as needed. Return back to the emergency room for worsening symptoms or concerns as needed. All discharge instructions reviewed with patient and/or family. Voiced understanding. DASHAWN LUTZ Aug 15, 2018 19:36
--- NOTE | 2018-08-15 19:58 | Diagnostic Imaging Report ---
INDICATION: Hand pain and swelling after punching a wall several times. TECHNIQUE: Three views of the right hand. CORRELATION STUDY: None FINDINGS: There is normal alignment and appearance of the osseous structures of the hand. The joint spaces are maintained. There is no acute fracture. Visualized on the lateral projection, there is slight cortical irregularity along the dorsal aspect of the wrist. Majorities appears to be fairly well-corticated. No disproportionate soft tissue swelling. IMPRESSION: 1. Negative for acute bony abnormality of the hand. Bone density adjacent to the dorsal aspect of the wrist. This may reflect a previous/remote injury. Acute injury is considered less likely. However, correlation with site of pain is recommended. Dictated by: Dictated on workstation # [id number]
--- NOTE | 2018-08-15 20:17 | NUR ---
AT TIME OF DISCHARGE PATIENT REFUSES TO SIGN DISCHARGE PAPERWORK. PATIENT STATES "I WANT MY BLOOD DRAWN BECAUSE MY CERTIFICATE IS MISSING AND I WANT TO KNOW WHO I AM. I ALSO MAY HAVE AIDS." LAW ENFORCEMENT WAS HERE EARLIER TALKING TO THE PATIENT. PATIENT STATES HE DID METH SEVERAL DAYS AGO. PATIENT WAS INFORMED BY PERINATAL TECHNICIAN THAT BLOOD WILL NOT BE DRAWN TODAY FOR THE HAND INJURY. PATIENT GOT UPSET AND REFUSED TO SIGN DISCHARGE PAPERWORK AND WALKED OUT THE DOOR.
[2018-08-15 20:20] VITALS: BP 132/86
== END 2018-08-15 20:21 | disposition home or self-care (01) ==
LOC: EDUNIT# 19:17 → ER 19:18
DX: S60.222A Contusion of left hand, initial encounter (principal); F41.9 Anxiety disorder, unspecified; F32.9 Major depressive disorder, single episode, unspecified; W22.01XA Walked into wall, initial encounter
CPT/HCPCS: 73130

== ENCOUNTER 2018-10-02 21:26 | Observation (INO) | payer SELFPAY ==
[~2018-10-02] VITALS: Ht 182.9 cm; Wt 81.6 kg
[2018-10-02] MEDS ORDERED: NS IV 1000 ML 1,000 ML ONE (21:27)
--- NOTE | 2018-10-02 21:30 | NUR ---
CLOTHES CUT OFF TO AIDE IN ASSESSMENT OF PT. BELONGINGS PLACED IN CLEAR PT BELONGING BAG INCLUDE: SLIDE TYPE SHOES, CHAIN NECKLACE, BASEBALL CAP, CELL PHONE, CELL PHONE QUALITY ASSURANCE TECH, PACK OF CIGARETTES, BOTTLE OF SPORTS DRINK.
[2018-10-02] MEDS ORDERED: NS IV 1000 ML 1,000 ML IV ONE (21:37)
--- NOTE | 2018-10-02 21:42 | ED General ---
General Stated Complaint: OVERDOSE Source of Information: EMS, Old Records, Police Exam Limitations: Other (PT IS UNRESPONSIVE ON ARRIVAL) History of Present Illness Date Seen by Provider: Oct 02, 2018 Time Seen by Provider: 21:27 Initial Comments PT ARRIVES VIA EMS, WITH [employer] PT REPORTEDLY TOOK "10 HITS" OF ACID, AND WAS NOTED TO BE ACTING BIZARRELY--WAS PICKED UP IN [facility] GAVE 500 MG KETAMINE PRIOR TO ARRIVAL IM--NO IV ACCESS PT IS NOW UNRESPONSIVE ON ARRIVAL PT IS WELL KNOWN TO [employer], AND IS A WELL-KNOWN METH USER PER [employer] ON REVIEW OF OLD RECORDS, PT HAS KNOWN HISTORY OF METH, BENZODIAZEPINE AND ALCOHOL ABUSE Allergies and Home Medications Allergies Coded Allergies: No Allergy Information Available (Unverified , 10/02/18) No Known Drug Allergies (Unverified , 09/20/17) Home Medications Lorazepam 1 Mg Tablet, 1 MG PO TID PRN for AGITATION Prescribed by: MARIUM WALLER on 04/01/18 1055 Patient Home Medication List Home Medication List Reviewed: Yes Review of Systems Review of Systems Constitutional: other (UNABLE TO OBTAIN) Past Qdlhflu-Qkllti-Ehylmw Hx Patient Social History Alcohol Use: Regular Use Alcohol Beverage of Choice: Beer Recreational Drug Use: Yes (METH, BENZODIAZPINES, ACID, THC) Drug of Choice: METH, BENZODIAZEPINES, ACID, THC Smoking Status: Current Everyday Smoker Type Used: Cigarettes 2nd Hand Smoke Exposure: Yes Recent Hopitalizations: No Immunizations Up To Date Tetanus Booster (TDap): Unknown PED Vaccines UTD: Yes Seasonal Allergies Seasonal Allergies: No Past Medical History Surgeries: Yes (ARM FX/REPAIR) Orthopedic Respiratory: No Cardiac: No Neurological: No Reproductive Disorders: No Genitourinary: No Gastrointestinal: No Musculoskeletal: Yes (ARM FX/ REPAIR) Endocrine: No Cancer: No Psychosocial: Yes (POLYSUBSTANCE ABUSE) Anxiety, Depression Integumentary: No Blood Disorders: No Family Medical History No Pertinent Family Hx Physical Exam Vital Signs Vital Signs - First Documented 10/02/18 21:27 Temp 99.7 Pulse 137 Resp 14 B/P (MAP) 166/101 (122) Pulse Ox 98 O2 Delivery Nasal Cannula O2 Flow Rate 2.00 Capillary Refill : Height, Weight, BMI Height: 6'0" Weight: 156lbs. 0.0oz. 70.038281be; 22.3 BMI Method:Actual General Appearance: Other (PT UNRESPONSIVE--EYES OPEN, BLANK STARE--"CATATONIC" ) HEENT: Other (POOR DENTITION) Respiratory: Normal Breath Sounds, No Accessory Muscle Use, No Respiratory Distress Cardiovascular: No Edema, No Murmur, Tachycardia (140'S) Gastrointestinal: Soft Back: No CVA Tenderness Extremity: Normal Inspection Neurologic/Psychiatric: Other ( ABOVE) Skin: Other (FLUSHED, VERY WARM, MOIST ) Progress/Results/Core Measures Suspected Sepsis SIRS Temperature: Pulse: Respiratory Rate: Laboratory Tests 10/02/18 21:37: White Blood Count 8.3 Blood Pressure / Mean: Laboratory Tests 10/02/18 21:37: Creatinine 1.23, Platelet Count 251, Total Bilirubin 0.5 Results/Orders Lab Results Laboratory Tests Test 10/02/18 21:37 10/02/18 21:57 Range/Units White Blood Count 8.3 4.3-11.0 10^3/uL Red Blood Count 4.96 4.35-5.85 10^6/uL Hemoglobin 15.1 13.3-17.7 G/DL Hematocrit 43 40-54 % Mean Corpuscular Volume 87 80-99 FL Mean Corpuscular Hemoglobin 30 25-34 PG Mean Corpuscular Hemoglobin Concent 35 32-36 G/DL Red Cell Distribution Width 13.4 10.0-14.5 % Platelet Count 251 130-400 10^3/uL Mean Platelet Volume 9.8 7.4-10.4 FL Neutrophils (%) (Auto) 73 42-75 % Lymphocytes (%) (Auto) 18 12-44 % Monocytes (%) (Auto) 8 0-12 % Eosinophils (%) (Auto) 0 0-10 % Basophils (%) (Auto) 0 0-10 % Neutrophils # (Auto) 6.1 1.8-7.8 X 10^3 Lymphocytes # (Auto) 1.5 1.0-4.0 X 10^3 Monocytes # (Auto) 0.6 0.0-1.0 X 10^3 Eosinophils # (Auto) 0.0 0.0-0.3 10^3/uL Basophils # (Auto) 0.0 0.0-0.1 10^3/uL Sodium Level 141 135-145 MMOL/L Potassium Level 2.9 L 3.6-5.0 MMOL/L Chloride Level 105 98-107 MMOL/L Carbon Dioxide Level 17 L 21-32 MMOL/L Anion Gap 19 H 5-14 MMOL/L Blood Urea Nitrogen 15 7-18 MG/DL Creatinine 1.23 0.60-1.30 MG/DL Estimat Glomerular Filtration Rate > 60 BUN/Creatinine Ratio 12 Glucose Level 136 H 70-105 MG/DL Calcium Level 10.0 8.5-10.1 MG/DL Corrected Calcium 8.5-10.1 MG/DL Total Bilirubin 0.5 0.1-1.0 MG/DL Aspartate Amino Transf (AST/SGOT) 17 5-34 U/L Alanine Aminotransferase (ALT/SGPT) 19 0-55 U/L Alkaline Phosphatase 59 40-136 U/L Total Protein 7.6 6.4-8.2 GM/DL Albumin 4.8 H 3.2-4.5 GM/DL Amylase Level 49 25-125 U/L [facility] [place] Testing 1.41 0.35-4.94 UIU/ML Salicylates Level < 5.0 L 5.0-20.0 MG/DL Acetaminophen Level < 10 L 10-30 UG/ML Serum Alcohol < 10 <10 MG/DL Urine Color YELLOW Urine Clarity CLEAR Urine pH 6.5 5-9 Urine Specific [place] 1.020 1.016-1.022 Urine Protein 1+ H NEGATIVE Urine Glucose (UA) NEGATIVE NEGATIVE Urine Ketones NEGATIVE NEGATIVE Urine Nitrite NEGATIVE NEGATIVE Urine Bilirubin NEGATIVE NEGATIVE Urine Urobilinogen NORMAL NORMAL MG/DL Urine Leukocyte Esterase NEGATIVE NEGATIVE Urine RBC (Auto) NEGATIVE NEGATIVE Urine RBC NONE /HPF Urine WBC NONE /HPF Urine Squamous Epithelial Cells RARE /HPF Urine Crystals NONE /LPF Urine Bacteria TRACE /HPF Urine Casts NONE /LPF Urine Mucus NEGATIVE /LPF Urine Culture Indicated NO Urine Opiates Screen NEGATIVE NEGATIVE Urine Oxycodone Screen NEGATIVE NEGATIVE Urine Methadone Screen NEGATIVE NEGATIVE Urine Propoxyphene Screen NEGATIVE NEGATIVE Urine Barbiturates Screen NEGATIVE NEGATIVE Ur Tricyclic Antidepressants Screen NEGATIVE NEGATIVE Urine Phencyclidine Screen NEGATIVE NEGATIVE Urine Amphetamines Screen POSITIVE H NEGATIVE Urine Methamphetamines Screen NEGATIVE NEGATIVE Urine Benzodiazepines Screen NEGATIVE NEGATIVE Urine Cocaine Screen NEGATIVE NEGATIVE Urine Cannabinoids Screen POSITIVE H NEGATIVE My Orders Orders - DANE MOTTA DO O2 (10/02/18 21:27) Urinalysis (10/02/18 21:27) Thyroid Analyzer (10/02/18 21:27) Drug Screen Stat (Urine) (10/02/18 21:27) Cbc With Automated Diff (10/02/18 21:27) Comprehensive Metabolic Panel (10/02/18 21:27) Amylase (10/02/18 21:27) Alcohol (10/02/18 21:27) Acetaminophen (10/02/18 21:27) Salicylate (10/02/18 21:27) Ekg Tracing (10/02/18 21:27) Monitor-Rhythm Ecg Trace Only (10/02/18 21:27) Ed Iv/Invasive Line Start (10/02/18 21:37) Ns Iv 1000 Ml (Sodium Chloride 0.9%) (10/02/18 21:37) Catheter(Urinary) Insert & Ass 03,15 (10/02/18 21:44) D5 1/2 Ns W/Kcl 40 Meq/L (Dextrose 5%/0. (10/02/18 22:30) Vital Signs/I&O 10/02/18 10/02/18 10/02/18 10/02/18 21:27 23:10 23:11 23:15 Temp 99.7 99.7 99.4 Pulse 137 101 112 124 Resp 14 18 14 13 B/P (MAP) 166/101 (122) 151/101 (118) 117/73 (88) 150/96 (114) Pulse Ox 98 97 100 100 O2 Delivery Nasal Cannula Room Air Nasal Cannula Nasal Cannula O2 Flow Rate 2.00 2.00 2.00 10/02/18 10/02/18 10/02/18 10/02/18 23:17 23:30 23:44 23:45 Pulse 108 98 103 Resp 9 8 B/P (MAP) 147/99 (115) 139/106 (117) Pulse Ox 98 100 96 O2 Delivery Nasal Cannula Room Air Nasal Cannula O2 Flow Rate 2.00 2.00 Capillary Refill : Progress Note : Progress Note HEART RATE DOWN TO 110-120'S PT WITH SLIGHT IMPROVEMENT IN MENTATION--ATTEMPTING TO TALK, SPEECH SLURRED AND MOSTLY NON-SENSICAL. DOES MAKE EYE CONTACT PRIOR TO ADMIT, PT NOTED TO REPEAT A FEW WORDS, RANDOMLY--"NO NO NO NO" "WHAT WHAT WHAT WHAT" , OTHERWISE DOES NOT TALK DOES NOT FOLLOW COMMANDS OR MAKE EYE CONTACT--CONTINUES WITH BLANK STARE NO DETERIORATION IN PT'S CONDITION DURING ER STAY ECG Initial ECG Impression Date: Oct 03, 2018 Initial ECG Impression Time: 21:39 Initial ECG Rate: 121 Initial ECG Rhythm: S.Tach Initial ECG Comparisson: No Previous ECG Available Departure Communication (Admissions) 2226--SPOKE WITH DR. WALSH, HOSPITALIST PEDIATRIC NEUROLOGIST FOR [facility] [place] FOR ADMIT. Impression Primary Impression: ILLICIT DRUG USE/OVERDOSE Additional Impression: Hypokalemia Disposition: ADMITTED INPATIENT Condition: Stable Admissions Decision to Admit Reason: Admit from ER (General) Decision to Admit/Date: Oct 03, 2018 Time/Decision to Admit Time: 22:30 Departure-Patient Inst. Referrals: [facility] [place] ([place]/Family) Primary Care Physician DANE MOTTA DO Oct 02, 2018 21:42
[2018-10-02 21:44] LABS: BASOPHILS % (AUTO) 0 % (0-10); EOSINOPHILS % (AUTO) 0 % (0-10); HEMATOCRIT 43 % (40-54); HEMOGLOBIN 15.1 G/DL (13.3-17.7); LYMPHOCYTES # (AUTO) 1.5 X 10^3 (1.0-4.0); LYMPHOCYTES % (AUTO) 18 % (12-44); MEAN CORPUSCULAR HEMOGLOBIN 30 PG (25-34); MEAN CORPUSCULAR HGB CONC 35 G/DL (32-36); MEAN CORPUSCULAR VOLUME 87 FL (80-99); MEAN PLATELET VOLUME 9.8 FL (7.4-10.4); MONOCYTES # (AUTO) 0.6 X 10^3 (0.0-1.0); MONOCYTES % (AUTO) 8 % (0-12); NEUTROPHILS # (AUTO) 6.1 X 10^3 (1.8-7.8); NEUTROPHILS % (AUTO) 73 % (42-75); PLATELET COUNT 251 10^3/uL (130-400); RED CELL DISTRIBUTION WIDTH 13.4 % (10.0-14.5); WHITE BLOOD COUNT 8.3 10^3/uL (4.3-11.0)
[2018-10-02 22:04] LABS: ALANINE AMINOTRANSFERASE 19 U/L (0-55); ALBUMIN 4.8 GM/DL (3.2-4.5); ALKALINE PHOSPHATASE 59 U/L (40-136); AMYLASE 49 U/L (25-125); BILIRUBIN,TOTAL 0.5 MG/DL (0.1-1.0); BUN/CREATININE RATIO 12; CARBON DIOXIDE 17 MMOL/L (21-32); CHLORIDE 105 MMOL/L (98-107); CREATININE SERUM 1.23 MG/DL (0.60-1.30); GFR ESTIMATED > 60; GLUCOSE 136 MG/DL (70-105); POTASSIUM 2.9 MMOL/L (3.6-5.0); SALICYLATE < 5.0 MG/DL (5.0-20.0); SODIUM 141 MMOL/L (135-145); TOTAL PROTEIN 7.6 GM/DL (6.4-8.2)
[2018-10-02 22:05] LABS: BILIRUBIN,URINE NEGATIVE (NEGATIVE); CLARITY,URINE CLEAR; COLOR,URINE YELLOW; GLUCOSE, URINE (UA) NEGATIVE (NEGATIVE); KETONES,URINE NEGATIVE (NEGATIVE); LEUKOCYTE ESTERASE ,URINE NEGATIVE (NEGATIVE); NITRITE,URINE NEGATIVE (NEGATIVE); PH,URINE 6.5 (5-9); PROTEIN,URINE 1+ (NEGATIVE); UROBILINOGEN,URINE NORMAL (NORMAL)
[2018-10-02 22:10] LABS: BACTERIA,URINE TRACE /HPF; SQUAMOUS EPITHELIAL CELL,UR RARE /HPF
[2018-10-02 22:11] LABS: ACETAMINOPHEN < 10 UG/ML (10-30)
[2018-10-02 22:16] LABS: AMPHETAMINE SCREEN, URINE POSITIVE (NEGATIVE); BARBITURATE SCREEN URINE NEGATIVE (NEGATIVE); BENZODIAZEPINES SCREEN URINE NEGATIVE (NEGATIVE); CANNABINOID SCREEN, URINE POSITIVE (NEGATIVE); COCAINE SCREEN URINE NEGATIVE (NEGATIVE); METHADONE STAT NEGATIVE (NEGATIVE); METHAMPHETAMINE SCREEN URINE S NEGATIVE (NEGATIVE); OPIATE SCREEN URINE NEGATIVE (NEGATIVE); OXYCODONE STAT NEGATIVE (NEGATIVE); PROPOXYPHENE STAT NEGATIVE (NEGATIVE); TRICYCLIC ANTIDEPRESSANTS SCRE NEGATIVE (NEGATIVE)
[2018-10-02 22:24] LABS: TSH (THYROID ANALYZER) 1.41 UIU/ML (0.35-4.94)
[2018-10-02] MEDS ORDERED: D5 1/2 NS W/KCL 40 MEQ/L 1,000 ML IV SCH (22:30)
[2018-10-02] MEDS ORDERED: D5 1/2 NS W/KCL 40 MEQ/L 1,000 ML IV ONE (23:03)
[2018-10-02 23:11] VITALS: BP 117/73
--- NOTE | 2018-10-02 23:11 | NUR ---
Patient to room at this time via stretcher with ED staff x 2. Patient cooperative with care at this time. Patient moved self to the hospital bed from the stretcher independently. 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 Patient is asking what happened and why he is here. Patient is not alert/oriented at this time. Only alert to name. Monitors placed on patient. Attempt to orient patient to surroundings. Bed rails up x 4, instructed on use of call light. Bed alarm on. Call light with in reach and orientation done. Continue to monitor.
[2018-10-02 23:15] VITALS: BP 150/96
[2018-10-02] MEDS: D5 1/2 NS W/KCL 40 MEQ/L 1,000 ML IV SCH (23:26)
[2018-10-02] MEDS: LORazepam INJ 2 MG/ML (ATIVAN) VIAL IV PRN (23:26)
[2018-10-02 23:30] VITALS: BP 147/99
[2018-10-02 23:45] VITALS: BP 139/106
--- NOTE | 2018-10-02 23:50 | NUR ---
Patient acting extremely paranoid, confused about how he got here. Anxious. Ativan administered. Encouraged relaxation. Re-orientation attempted.
[2018-10-03 01:00] VITALS: BP 161/70
[2018-10-03] MEDS ORDERED: POTASSIUM CL 10MEQ/50ML IVPB 200 ML IV ONE (01:06)
[2018-10-03] MEDS: POTASSIUM CL 10MEQ/50ML IVPB 50 ML IV SCH ×4 (01:15→04:20)
[2018-10-03] MEDS: LORazepam INJ 2 MG/ML (ATIVAN) VIAL IV PRN ×2 (01:18→03:57)
--- NOTE | 2018-10-03 02:00 | NUR ---
Patient has threatened to leave AMA multiple times. Patient encouraged to stay and have an evaluation by the physician. Patient agrees for short term admission. Patient wanting to go outside to smoke a cigarette. Cigarettes in possession of RN. Offered Nicotine patch, patient declined. Bed alarm on. Patient has set it off multiple times.
[2018-10-03 02:08] VITALS: BP 153/93
[2018-10-03 03:20] VITALS: BP 164/98
[2018-10-03 04:14] LABS: BASOPHILS % (AUTO) 0 % (0-10); EOSINOPHILS % (AUTO) 0 % (0-10); HEMATOCRIT 43 % (40-54); HEMOGLOBIN 14.9 G/DL (13.3-17.7); LYMPHOCYTES # (AUTO) 1.7 X 10^3 (1.0-4.0); LYMPHOCYTES % (AUTO) 18 % (12-44); MEAN CORPUSCULAR HEMOGLOBIN 30 PG (25-34); MEAN CORPUSCULAR HGB CONC 34 G/DL (32-36); MEAN CORPUSCULAR VOLUME 87 FL (80-99); MEAN PLATELET VOLUME 10.4 FL (7.4-10.4); MONOCYTES # (AUTO) 0.7 X 10^3 (0.0-1.0); MONOCYTES % (AUTO) 7 % (0-12); NEUTROPHILS # (AUTO) 7.4 X 10^3 (1.8-7.8); NEUTROPHILS % (AUTO) 75 % (42-75); PLATELET COUNT 238 10^3/uL (130-400); RED CELL DISTRIBUTION WIDTH 13.4 % (10.0-14.5); WHITE BLOOD COUNT 9.8 10^3/uL (4.3-11.0)
--- NOTE | 2018-10-03 04:31 | NUR ---
Patient resting at this time. No complaints. States that he is starting to remember some of the events from this evening. Patient admits to ingesting multiple hallucinogenics tonight. Patient continues to have flight of ideas.
[2018-10-03 04:34] LABS: ALANINE AMINOTRANSFERASE 18 U/L (0-55); ALBUMIN 4.3 GM/DL (3.2-4.5); ALKALINE PHOSPHATASE 47 U/L (40-136); BILIRUBIN,TOTAL 0.5 MG/DL (0.1-1.0); BUN/CREATININE RATIO 10; CALCIUM 9.4 MG/DL (8.5-10.1); CARBON DIOXIDE 19 MMOL/L (21-32); CHLORIDE 106 MMOL/L (98-107); CREATININE SERUM 0.91 MG/DL (0.60-1.30); GFR ESTIMATED > 60; GLUCOSE 118 MG/DL (70-105); MAGNESIUM 1.9 MG/DL (1.8-2.4); PHOSPHORUS 2.9 MG/DL (2.3-4.7); POTASSIUM 3.5 MMOL/L (3.6-5.0); SODIUM 138 MMOL/L (135-145); TOTAL PROTEIN 7.1 GM/DL (6.4-8.2)
[2018-10-03] MEDS: D5 1/2 NS W/KCL 40 MEQ/L 1,000 ML IV SCH (05:39)
[2018-10-03 05:40] VITALS: BP 130/91
[2018-10-03] MEDS ORDERED: POTASSIUM CL 10MEQ/50ML IVPB 50 ML IV SCH (06:00)
[2018-10-03] MEDS ORDERED: KCL 20 MEQ TAB (K-DUR) PO SCH (06:00)
[2018-10-03] MEDS ORDERED: MAGNESIUM 1 GM/100 ML IVPB 100 ML IV SCH (06:00)
--- NOTE | 2018-10-03 06:13 | Pulmonary Consultation ---
History of Present Illness History of Present Illness Date of Consultation 10/03/18 06:07 Time Seen by Provider: 06:08 Date of Admission History of Present Illness 27yo with hx of Methamphetamine use presented to ED by [place] [employer] he took "10hits" of LSD. He was then picked up in [facility] parking lot after police were called secondary to his behavior. PT was given 500mg of Ketamine per EMS and was unresponsive in ED. Pt is now awake and alert following commands. Allergies and Home Medications Allergies Coded Allergies: No Allergy Information Available (Unverified , 10/02/18) No Known Drug Allergies (Unverified , 09/20/17) Home Medications Lorazepam 1 Mg Tablet, 1 MG PO TID PRN for AGITATION Prescribed by: MARIUM WALLER on 04/01/18 1051 Past Johybtx-Mdrbzt-Dyyrxa Hx Patient Social History Alcohol Use: Regular Use Number of Drinks Today: AA Alcohol Beverage of Choice: Beer Recreational Drug Use: Yes (METH, BENZODIAZPINES, ACID, THC) Drug of Choice: METH, BENZODIAZEPINES, ACID, THC Smoking Status: Current Everyday Smoker Type Used: Cigarettes 2nd Hand Smoke Exposure: Yes Recent Foreign Travel: No Contact w/Someone Who Travel: No Recent Infectious Disease Expo: No Recent Hopitalizations: No Immunizations Up To Date Tetanus Booster (TDap): Unknown PED Vaccines UTD: Yes Seasonal Allergies Seasonal Allergies: No Past Medical History Surgeries: Yes (ARM FX/REPAIR) Orthopedic Respiratory: No Cardiac: No Neurological: No Reproductive Disorders: No Genitourinary: No Gastrointestinal: No Musculoskeletal: Yes (ARM FX/ REPAIR) Endocrine: No Cancer: No Psychosocial: Yes (POLYSUBSTANCE ABUSE) Anxiety, Depression Integumentary: No Blood Disorders: No Family Medical History No Pertinent Family Hx Review of Systems Time Seen by Provider: 06:13 Constitutional: No: Fever, Chills, Sweats, Weakness, Malaise, Other Eyes: No: Pain, Vision change, Conjunctivae inflammation, Eyelid inflammation, Other, Redness ENT: No: Ear pain, Ear discharge, Nose pain, Nose discharge, Nose congestion, Mouth pain, Mouth swelling, Throat pain, Throat swelling, Other Respiratory: No: Cough, Dry, Shortness of breath, SOB with excertion, Wheezing, Hemoptysis, Pleuritic Pain, Sputum, Wheezing, Other Cardiovascular: No: Chest Pain, Palpitations, Orthopnea, Paroxysmal Noc. Dyspnea, Edema, Lt Headedness, Other Gastrointestinal: No: Nausea, Vomiting, Abdominal Pain, Diarrhea, Constipation, Melena, Hematochezia, Other Sepsis Event Evaluation Height, Weight, BMI Height: 6'0.00" Weight: 180lbs. 0.0oz. [id number]; 24.4 BMI Method:Actual Exam Exam Vital Signs Date Time Temp Pulse Resp B/P (MAP) Pulse Ox O2 Delivery O2 Flow Rate FiO2 10/03/18 05:40 101 12 130/91 (104) 99 Room Air 10/03/18 04:00 Room Air 10/03/18 03:20 98.0 121 21 164/98 (120) 98 Room Air 10/03/18 03:20 98 Room Air 10/03/18 02:08 112 24 153/93 (113) Nasal Cannula 2.00 10/03/18 01:00 129 10/03/18 01:00 129 16 161/70 (100) Nasal Cannula 2.00 10/02/18 23:45 Nasal Cannula 2.00 10/02/18 23:45 103 8 139/106 (117) 96 Nasal Cannula 2.00 10/02/18 23:44 100 Room Air 10/02/18 23:30 98 9 147/99 (115) 98 Nasal Cannula 2.00 10/02/18 23:17 108 10/02/18 23:15 124 13 150/96 (114) 100 Nasal Cannula 2.00 10/02/18 23:11 99.4 112 14 117/73 (88) 100 Nasal Cannula 2.00 10/02/18 23:10 99.7 101 18 151/101 (118) 97 Room Air 10/02/18 21:27 99.7 137 14 166/101 (122) 98 Nasal Cannula 2.00 I & O 10/03/18 07:00 Intake Total 3250 ml Output Total 2200 ml Balance 1050 ml Height & Weight Height: 6'0.00" Weight: 180lbs. 0.0oz. 81.127906sk; 24.4 BMI Method:Actual General Appearance: No Apparent Distress, WD/WN, Anxious Neck: Non Tender, Supple Respiratory: Normal Breath Sounds, No Accessory Muscle Use, No Respiratory Distress Cardiovascular: No Edema, No Murmur Capillary Refill: Less Than 3 Seconds Extremity: Normal Inspection Neurologic/Psychiatric: Alert, Other ( ABOVE) Skin: Normal Color, Warm/Dry, Other (FLUSHED, VERY WARM, MOIST ) Results Lab Laboratory Tests 10/02/18 21:37 10/03/18 03:48 Assessment/Plan Assessment/Plan LSD/Methamphetamine use -Education MS changes - now resolved Drug induced psychosis Pt is ok from my standpoint for discharge. EDGAR GREGG DO Oct 03, 2018 06:13
--- NOTE | 2018-10-03 06:30 | NUR ---
Patient pulled IV out at this time and demanded to be discharged. Patient signed AMA paper. Dr Curtis present and aware, text sent to Dr Maynard and Dr Maynard acknowledged. Patient ambulated out of the ICU in a hospital gown with his personal belongings. Cell phone and ore charger, chain, hat, shoes. Left his sports drink at the bedside. Patient was speaking on the phone with his aunt at the time of departure and she agreed to come to the hospital to pick the patient up. She was not here at the time the patient walked out.
--- NOTE | 2018-10-03 08:07 | History & Physical-Hospitalist ---
History of Present Illness HPI/Chief Complaint Left AMA before seen by this examiner Date Seen 10/03/18 Time Seen by a Provider: 00:00 Attending Physician Christine Maynard DO [facility] Referring Physician Date of Admission Oct 02, 2018 at 22:40 Home Medications & Allergies Home Medications Reviewed patient Home Medication Reconciliation performed by pharmacy medication reconciliations lab animal technician and/or nursing. Patients Allergies have been reviewed. Allergies Allergies Coded Allergies No Allergy Information Available (Unverified10/02/18) No Known Drug Allergies (Unverified09/20/17) Past Brwkxkg-Weuytb-Bzdyve Hx Past Med/Social Hx: Reviewed Nursing Past Med/Soc Hx Patient Social History Alcohol Use: Regular Use Number of Drinks Today: AA Alcohol Beverage of Choice: Beer Recreational Drug Use: Yes (METH, BENZODIAZPINES, ACID, THC) Drug of Choice: METH, BENZODIAZEPINES, ACID, THC Smoking Status: Current Everyday Smoker Type Used: Cigarettes 2nd Hand Smoke Exposure: Yes Recent Foreign Travel: No Contact w/other who traveled: No Recent Hopitalizations: No Recent Infectious Disease Expo: No Immunizations Up To Date Tetanus Booster (TDap): Unknown Pediatric: Yes Seasonal Allergies Seasonal Allergies: No Past Medical History Surgeries: Orthopedic Reproductive: No Psychosocial: Anxiety, Depression History of Blood Disorders: No Family History No Pertinent Family Hx Review of Systems Constitutional: other (Left AMA before seen by this examiner) Physical Exam Physical Exam Vital Signs Vital Signs - First Documented 10/02/18 21:27 Temp 99.7 Pulse 137 Resp 14 B/P (MAP) 166/101 (122) Pulse Ox 98 O2 Delivery Nasal Cannula O2 Flow Rate 2.00 Capillary Refill : Less Than 3 Seconds Height, Weight, BMI Height: 6'0.00" Weight: 180lbs. 0.0oz. 81.107219qr; 24.4 BMI Method:Actual General Appearance: Other (Left AMA before seen by this examiner) Results Results/Procedures Labs Laboratory Tests 10/02/18 21:37 10/03/18 03:48 Patient resulted labs reviewed. Assessment/Plan Admission Diagnosis Left AMA before seen by this examiner Admission Status: Observation Clinical Quality Measures DVT/VTE Risk/Contraindication: Risk Factor Score Per Nursin RFS Level Per Nursing on Admit: 1=Low/No VTE PPX CHRISTINE MAYNARD DO Oct 03, 2018 08:07
== END 2018-10-03 06:30 | disposition left against medical advice (07) ==
LOC: EDUNIT# 21:26 → ER 21:32 → ICU 22:40 → UNDOADMOB 22:40 → ICU 23:11 → UNDODISOB 10-03 06:38
PROVIDERS: ADMIT Internal Medicine; ATTEND Internal Medicine
DX: F16.959 Hallucinogen use, unspecified with hallucinogen-induced psychotic disorder, unspecified (principal); E87.6 Hypokalemia; F17.210 Nicotine dependence, cigarettes, uncomplicated; F41.9 Anxiety disorder, unspecified; F32.9 Major depressive disorder, single episode, unspecified; Z53.21 Procedure and treatment not carried out due to patient leaving prior to being seen by health care provider; Z79.899 Other long term (current) drug therapy
CPT/HCPCS: 36415; 51702; 80053; 80306; 80320; 80329; 81000; 82150; 83735; 84100; 84443; 85025; 87081; 93005; 93041; 96360; G0378

== ENCOUNTER 2019-06-21 22:01 | Emergency (ER) | payer SELFPAY ==
[~2019-06-21] VITALS: Ht 182.8 cm; Wt 86.1 kg
[2019-06-21 23:50] VITALS: BP 149/104
[2019-06-22 01:45] LABS: ALANINE AMINOTRANSFERASE 16 U/L (0-55); ALBUMIN 4.7 GM/DL (3.2-4.5); ALKALINE PHOSPHATASE 73 U/L (40-136); BILIRUBIN,TOTAL 0.3 MG/DL (0.1-1.0); BUN/CREATININE RATIO 17; CALCIUM 9.7 MG/DL (8.5-10.1); CARBON DIOXIDE 26 MMOL/L (21-32); CHLORIDE 102 MMOL/L (98-107); CREATININE SERUM 1.27 MG/DL (0.60-1.30); GFR ESTIMATED > 60; GLUCOSE 85 MG/DL (70-105); POTASSIUM 3.8 MMOL/L (3.6-5.0); SODIUM 140 MMOL/L (135-145); TOTAL PROTEIN 7.6 GM/DL (6.4-8.2)
[2019-06-22 01:46] LABS: FIBRIN DEGRADATION PRODUCTS 0.33 UG/ML (0.00-0.49); INR 0.9 (0.8-1.4); PROTHROMBIN TIME PATIENT 12.7 SEC (12.2-14.7)
[2019-06-22 01:47] LABS: HEMATOCRIT 44 % (40-54); HEMOGLOBIN 15.4 G/DL (13.3-17.7); MEAN CORPUSCULAR HEMOGLOBIN 30 PG (25-34); MEAN CORPUSCULAR HGB CONC 35 G/DL (32-36); MEAN CORPUSCULAR VOLUME 87 FL (80-99); WHITE BLOOD COUNT 7.8 10^3/uL (4.3-11.0)
[2019-06-22 01:48] LABS: BASOPHILS % (AUTO) 0 % (0-10); EOSINOPHILS % (AUTO) 2 % (0-10); LYMPHOCYTES # (AUTO) 2.6 X 10^3 (1.0-4.0); LYMPHOCYTES % (AUTO) 33 % (12-44); MEAN PLATELET VOLUME 9.8 FL (7.4-10.4); MONOCYTES # (AUTO) 0.7 X 10^3 (0.0-1.0); MONOCYTES % (AUTO) 8 % (0-12); NEUTROPHILS # (AUTO) 4.4 X 10^3 (1.8-7.8); NEUTROPHILS % (AUTO) 56 % (42-75); PLATELET COUNT 242 10^3/uL (130-400); RED CELL DISTRIBUTION WIDTH 13.4 % (10.0-14.5)
[2019-06-22 01:49] LABS: EOSINOPHILS # (AUTO) 0.2 10^3/uL (0.0-0.3)
[2019-06-22 01:52] LABS: BILIRUBIN,URINE NEGATIVE (NEGATIVE); CLARITY,URINE CLEAR; COLOR,URINE YELLOW; GLUCOSE, URINE (UA) NEGATIVE (NEGATIVE); KETONES,URINE NEGATIVE (NEGATIVE); NITRITE,URINE NEGATIVE (NEGATIVE); PH,URINE 5.5 (5-9); PROTEIN,URINE NEGATIVE (NEGATIVE)
[2019-06-22 01:53] LABS: AMPHETAMINE SCREEN, URINE NEGATIVE (NEGATIVE); BACTERIA,URINE NEGATIVE /HPF; BARBITURATE SCREEN URINE NEGATIVE (NEGATIVE); BENZODIAZEPINES SCREEN URINE NEGATIVE (NEGATIVE); CANNABINOID SCREEN, URINE NEGATIVE (NEGATIVE); COCAINE SCREEN URINE NEGATIVE (NEGATIVE); LEUKOCYTE ESTERASE ,URINE NEGATIVE (NEGATIVE); METHADONE STAT NEGATIVE (NEGATIVE); METHAMPHETAMINE SCREEN URINE S NEGATIVE (NEGATIVE); OPIATE SCREEN URINE NEGATIVE (NEGATIVE); OXYCODONE STAT NEGATIVE (NEGATIVE); PROPOXYPHENE STAT NEGATIVE (NEGATIVE); RBC,URINE 0-2 /HPF; TRICYCLIC ANTIDEPRESSANTS SCRE NEGATIVE (NEGATIVE)
--- NOTE | 2019-06-22 05:24 | ED General ---
General Chief Complaint: Upper Extremity Stated Complaint: LEFT ARM SWELLING Nursing Triage Note: C/O ZAVALA AREA ON HIS INNER UPPER LEFT ARM. C/O FEVER AND CHILLS AT NIGHT HAS BEEN GOING ON FOR A MONTH AND A HALF Nursing Sepsis Screen: Possible Sepsis Risk Source of Information: Patient Exam Limitations: No Limitations History of Present Illness Date Seen by Provider: Jun 21, 2019 Time Seen by Provider: 22:23 Initial Comments This 28-year-old man presents to the emergency room with a variety of complaints. He is primarily concerned with a rash and swelling over the left biceps that has been present for a couple of weeks. This was evaluated in the clinic. The area is mildly erythematous, mildly itchy, and slightly tender. He was given a prescription for steroid cream which she has not started. He also had sore throat and a fine maculopapular rash when he was seen in the clinic. He was given a penicillin injection for treatment of suspected strep throat. The rash has continued. He also complains of bloating in the abdomen. He admits to drinking 2-3 large beers daily. He is recently clean from illicit drugs. He is going to have [facility] recommended rehabilitation in the near future. He has a history of elevated transaminases and risk for hepatitis including prior IV drug use and tattoos. He is afebrile but states he has been having some chills at night. Allergies and Home Medications Allergies Coded Allergies: No Allergy Information Available (Unverified , 10/02/18) No Known Drug Allergies (Unverified , 09/20/17) Home Medications Lorazepam 1 Mg Tablet, 1 MG PO TID PRN for AGITATION Prescribed by: MARIUM WALLER on 04/01/18 1055 Patient Home Medication List Home Medication List Reviewed: Yes Review of Systems Review of Systems Constitutional: see HPI EENTM: no symptoms reported Respiratory: no symptoms reported Cardiovascular: no symptoms reported Gastrointestinal: no symptoms reported Genitourinary: no symptoms reported Musculoskeletal: no symptoms reported Skin: see HPI Psychiatric/Neurological: See HPI Hematologic/Lymphatic: See HPI Immunological/Allergic: see HPI Past Kxbkwen-Bfaeds-Oznkbk Hx Past Med/Social Hx: Reviewed Nursing Past Med/Soc Hx Patient Social History Alcohol Use: Regular Use Number of Drinks Today: AA Alcohol Beverage of Choice: Beer Recreational Drug Use: Yes (history of IV drug use) Drug of Choice: METH, BENZODIAZEPINES, ACID, THC Type Used: Cigarettes 2nd Hand Smoke Exposure: Yes Recent Foreign Travel: No Contact w/Someone Who Travel: No Recent Infectious Disease Expo: No Recent Hopitalizations: No Physical Abuse: No Sexual Abuse: No Mistreated: No Fear: No Immunizations Up To Date Tetanus Booster (TDap): Unknown PED Vaccines UTD: Yes Seasonal Allergies Seasonal Allergies: No Past Medical History Surgeries: Yes (ARM FX/REPAIR) Orthopedic Respiratory: No Cardiac: No Neurological: No Reproductive Disorders: No Genitourinary: No Gastrointestinal: No Musculoskeletal: Yes (ARM FX/ REPAIR) Endocrine: No HEENT: No Cancer: No Psychosocial: Yes (POLYSUBSTANCE ABUSE) Anxiety, Depression Integumentary: No Blood Disorders: No Family Medical History No Pertinent Family Hx Physical Exam Vital Signs Vital Signs - First Documented 06/21/19 22:06 Temp 36.6 Pulse 103 Resp 18 B/P (MAP) 148/112 (124) Pulse Ox 100 Capillary Refill : Less Than 3 Seconds Height, Weight, BMI Height: 6'0.00" Weight: 180lbs. 0.0oz. 81.120073nb; 25.00 BMI Method:Actual General Appearance: No Apparent Distress, WD/WN HEENT: PERRL/EOMI, Normal ENT Inspection Neck: Normal Inspection Respiratory: Lungs Clear, Normal Breath Sounds, No Accessory Muscle Use, No Respiratory Distress Cardiovascular: No Edema, No Murmur, Tachycardia Gastrointestinal: Normal Bowel Sounds, Non Tender, Soft Genital/Rectal: Normal Rectal Tone Back: Normal Inspection Extremity: Normal Inspection, Non Tender Neurologic/Psychiatric: Alert, Oriented x3, No Motor/Sensory Deficits, Normal Mood/Affect, delivery rep II-XII Norm as Tested Skin: Warm/Dry, Rash (pain maculopapular rash on the trunk. Area of minor swelling and erythema on the left biceps) Progress/Results/Core Measures Suspected Sepsis Recent Fever Within 48 Hours: Yes Infection Criteria Present: Suspected New Infection New/Unexplained Altered Menta: No Sepsis Screen: Possible Sepsis Risk SIRS Temperature: Pulse: 99 Respiratory Rate: 18 Laboratory Tests 06/21/19 22:45: White Blood Count 7.8 Blood Pressure 149 /104 Mean: 124 Laboratory Tests 06/21/19 22:45: Creatinine 1.27, INR Comment 0.9, Platelet Count 242, Total Bilirubin 0.3 Results/Orders Lab Results Laboratory Tests Test 06/21/19 22:45 Range/Units White Blood Count 7.8 4.3-11.0 10^3/uL Red Blood Count 5.08 4.35-5.85 10^6/uL Hemoglobin 15.4 13.3-17.7 G/DL Hematocrit 44 40-54 % Mean Corpuscular Volume 87 80-99 FL Mean Corpuscular Hemoglobin 30 25-34 PG Mean Corpuscular Hemoglobin Concent 35 32-36 G/DL Red Cell Distribution Width 13.4 10.0-14.5 % Platelet Count 242 130-400 10^3/uL Mean Platelet Volume 9.8 7.4-10.4 FL Neutrophils (%) (Auto) 56 42-75 % Lymphocytes (%) (Auto) 33 12-44 % Monocytes (%) (Auto) 8 0-12 % Eosinophils (%) (Auto) 2 0-10 % Basophils (%) (Auto) 0 0-10 % Neutrophils # (Auto) 4.4 1.8-7.8 X 10^3 Lymphocytes # (Auto) 2.6 1.0-4.0 X 10^3 Monocytes # (Auto) 0.7 0.0-1.0 X 10^3 Eosinophils # (Auto) 0.2 0.0-0.3 10^3/uL Basophils # (Auto) 0.0 0.0-0.1 10^3/uL Prothrombin Time 12.7 12.2-14.7 SEC INR Comment 0.9 0.8-1.4 D-Dimer 0.33 0.00-0.49 UG/ML Urine Color YELLOW Urine Clarity CLEAR Urine pH 5.5 5-9 Urine Specific Seymour 1.025 H 1.016-1.022 Urine Protein NEGATIVE NEGATIVE Urine Glucose (UA) NEGATIVE NEGATIVE Urine Ketones NEGATIVE NEGATIVE Urine Nitrite NEGATIVE NEGATIVE Urine Bilirubin NEGATIVE NEGATIVE Urine Urobilinogen 0.2 < = 1.0 MG/DL Urine Leukocyte Esterase NEGATIVE NEGATIVE Urine RBC (Auto) NEGATIVE NEGATIVE Urine RBC 0-2 /HPF Urine WBC NONE /HPF Urine Squamous Epithelial Cells NONE /HPF Urine Crystals NONE /LPF Urine Bacteria NEGATIVE /HPF Urine Casts NONE /LPF Urine Mucus NEGATIVE /LPF Urine Culture Indicated NO Sodium Level 140 135-145 MMOL/L Potassium Level 3.8 3.6-5.0 MMOL/L Chloride Level 102 98-107 MMOL/L Carbon Dioxide Level 26 21-32 MMOL/L Anion Gap 12 5-14 MMOL/L Blood Urea Nitrogen 22 H 7-18 MG/DL Creatinine 1.27 0.60-1.30 MG/DL Estimat Glomerular Filtration Rate > 60 BUN/Creatinine Ratio 17 Glucose Level 85 70-105 MG/DL Calcium Level 9.7 8.5-10.1 MG/DL Corrected Calcium 8.5-10.1 MG/DL Total Bilirubin 0.3 0.1-1.0 MG/DL Aspartate Amino Transf (AST/SGOT) 16 5-34 U/L Alanine Aminotransferase (ALT/SGPT) 16 0-55 U/L Alkaline Phosphatase 73 40-136 U/L C-Reactive Protein High Sensitivity 0.18 0.00-0.50 MG/DL Total Protein 7.6 6.4-8.2 GM/DL Albumin 4.7 H 3.2-4.5 GM/DL Urine Opiates Screen NEGATIVE NEGATIVE Urine Oxycodone Screen NEGATIVE NEGATIVE Urine Methadone Screen NEGATIVE NEGATIVE Urine Propoxyphene Screen NEGATIVE NEGATIVE Urine Barbiturates Screen NEGATIVE NEGATIVE Ur Tricyclic Antidepressants Screen NEGATIVE NEGATIVE Urine Phencyclidine Screen NEGATIVE NEGATIVE Urine Amphetamines Screen NEGATIVE NEGATIVE Urine Methamphetamines Screen NEGATIVE NEGATIVE Urine Benzodiazepines Screen NEGATIVE NEGATIVE Urine Cocaine Screen NEGATIVE NEGATIVE Urine Cannabinoids Screen NEGATIVE NEGATIVE Group A Streptococcus Screen NEGATIVE NEGATIVE My Orders Orders - XAVIER CAMARENA MD Cbc With Automated Diff (06/21/19 22:45) Comprehensive Metabolic Panel (06/21/19 22:45) Hs C Reactive Protein (06/21/19 22:45) Fibrin Degradation Products (06/21/19 22:45) Protime With Inr (06/21/19 22:45) Rapid Strep A Screen (06/21/19 22:45) Drug Screen Stat (Urine) (06/21/19 22:45) Urinalysis (06/21/19 22:45) Hepatitis Panel Acute (06/21/19 22:45) Vital Signs/I&O 06/21/19 06/21/19 22:06 23:50 Temp 36.6 37.1 Pulse 103 99 Resp 18 18 B/P (MAP) 148/112 (124) 149/104 (124) Pulse Ox 100 100 Capillary Refill : Less Than 3 Seconds Blood Pressure Mean: 124 Progress Note : Progress Note Workup was completely unremarkable. Hepatitis screening is pending. Patient was prescribed Keflex for possible cellulitis of the left arm. See discharge instructions. Departure Impression Primary Impression: Rash Additional Impression: Alcohol dependence Qualified Codes: F10.20 - Alcohol dependence, uncomplicated Disposition: HOME, SELF-CARE Condition: Stable Copy Copies To 1: JULIA JENKINS JOSHUA T MD Jun 22, 2019 05:24
[2019-06-22 22:35] LABS: HEPATITIS C ANTIBODY C Non-Reactive (Non-Reactive)
== END 2019-06-21 23:50 | disposition home or self-care (01) ==
LOC: EDUNIT# 22:01 → ER 22:02
DX: R21 Rash and other nonspecific skin eruption (principal); F10.20 Alcohol dependence, uncomplicated; F41.9 Anxiety disorder, unspecified; F32.9 Major depressive disorder, single episode, unspecified; Z77.22 Contact with and (suspected) exposure to environmental tobacco smoke (acute) (chronic)
CPT/HCPCS: 36415; 80053; 80074; 80306; 81000; 85025; 85379; 85610; 86141; 87430; 99284

== ENCOUNTER 2019-12-04 15:15 | Emergency (ER) | payer SELFPAY ==
[~2019-12-04] VITALS: Ht 177.8 cm; Wt 74.8 kg
[2019-12-04 15:56] VITALS: BP 125/85
--- NOTE | 2019-12-04 16:04 | ED Integumentary General ---
General Chief Complaint: Skin/Wound Problems Stated Complaint: ABSCESS Source: patient Exam Limitations: no limitations History of Present Illness Date Seen by Provider: Dec 04, 2019 Time Seen by Provider: 16:02 Initial Comments 29-year-old male presents with an approximate 2.5 cm abscess on his right forearm. Patient reports it started about a week ago. His gotten previously worse. Patient reports he got some amoxicillin from an aunt that works at a dental office and took one dose today. He denies any other systemic complaints. He denies any fevers chills nausea vomiting shortness of breath. Allergies and Home Medications Allergies Coded Allergies: No Allergy Information Available (Unverified , 10/02/18) No Known Drug Allergies (Unverified , 09/20/17) Home Medications Clindamycin HCl 300 Mg Capsule, 300 MG PO Q8H Prescribed by: SACHI AVELAR on 12/04/19 1619 Lorazepam 1 Mg Tablet, 1 MG PO TID PRN for AGITATION Prescribed by: MARIUM WALLER on 04/01/18 1055 Patient Home Medication List Home Medication List Reviewed: Yes Review of Systems Review of Systems Constitutional: No chills, No fever Respiratory: no symptoms reported Cardiovascular: no symptoms reported Gastrointestinal: no symptoms reported Skin: see HPI Past Ykgitej-Kdydkg-Jopnkr Hx Past Med/Social Hx: Reviewed Nursing Past Med/Soc Hx Patient Social History Alcohol Beverage of Choice: Beer Drug of Choice: METH, BENZODIAZEPINES, ACID, THC Type Used: Cigarettes 2nd Hand Smoke Exposure: Yes Recent Foreign Travel: No Contact w/Someone Who Travel: No Recent Hopitalizations: No Immunizations Up To Date Tetanus Booster (TDap): Unknown PED Vaccines UTD: Yes Seasonal Allergies Seasonal Allergies: No Past Medical History Surgeries: Yes (ARM FX/REPAIR) Orthopedic Respiratory: No Cardiac: No Neurological: No Reproductive Disorders: No Genitourinary: No Gastrointestinal: No Musculoskeletal: Yes (ARM FX/ REPAIR) Endocrine: No HEENT: No Cancer: No Psychosocial: Yes (POLYSUBSTANCE ABUSE) Anxiety, Depression Integumentary: No Blood Disorders: No Family Medical History No Pertinent Family Hx Physical Exam Vital Signs Vital Signs - First Documented 12/04/19 15:56 Temp 37.2 Pulse 123 Resp 20 B/P (MAP) 125/85 (98) Pulse Ox 98 O2 Delivery Room Air Capillary Refill : General Appearance: WD/WN Cardiovascular: normal peripheral pulses, regular rate, rhythm Respiratory: no respiratory distress, no accessory muscle use Gastrointestinal: non tender, soft Extremities: normal range of motion Neurologic/Psychiatric: normal mood/affect, oriented x 3 Skin: tattoos/piercings Skin Problem Location: upper extremities Skin Problem Character: abscess (approx 2.5 cm right forearm ) Procedures/Interventions I&D : Blade Size: 11 I & D Procedure: betadine prep Progress An approximate 1.2 cm laceration was incised and abscess. There was a large amount of purulent drainage. Patient tolerated with no immediate complications. Progress/Results/Core Measures Results/Orders Vital Signs/I&O 12/04/19 15:56 Temp 37.2 Pulse 123 Resp 20 B/P (MAP) 125/85 (98) Pulse Ox 98 O2 Delivery Room Air Departure Impression Primary Impression: Abscess Disposition: 01 HOME, SELF-CARE Condition: Stable Departure-Patient Inst. [facility] Primary Care Physician ABHAY DUKES (Family) Primary Care Physician Patient Instructions: MRSA (DC), Abscess Incision and Drainage (DC) Add. Discharge Instructions: Follow-up with her primary care provider for recheck of symptoms in 5-6 days All discharge instructions reviewed with patient and/or family. Voiced understanding. Scripts Clindamycin HCl (Clindamycin HCl) 300 Mg Capsule 300 MG PO Q8H for 10 Days, #30 CAP Prov: SACHI AVELAR DO 12/04/19 SACHI AVELAR DO Dec 04, 2019 16:04
[2019-12-04] MEDS ORDERED: CLIN300C11 PO (16:19)
== END 2019-12-04 16:30 | disposition home or self-care (01) ==
LOC: EDUNIT# 15:15 → ER 15:18
DX: L02.413 Cutaneous abscess of right upper limb (principal); F41.9 Anxiety disorder, unspecified; F32.9 Major depressive disorder, single episode, unspecified; Z77.22 Contact with and (suspected) exposure to environmental tobacco smoke (acute) (chronic)
CPT/HCPCS: 10060; 87070; 87205

== ENCOUNTER 2020-02-05 11:46 | Emergency (ER) | payer SELFPAY ==
[~2020-02-05] VITALS: Ht 182 cm; Wt 73.4 kg
[~2020-02-05 11:46] MED LIST changes: +CLIN300C11 PO
--- NOTE | 2020-02-05 12:28 | ED Lower Extremity ---
General Chief Complaint: Lower Extremity Stated Complaint: L ANKLE PAIN Source: patient Exam Limitations: no limitations History of Present Illness Date Seen by Provider: Feb 05, 2020 Time Seen by Provider: 12:24 Initial Comments Patient arrives to ED with complaints of left ankle pain and swelling since yesterday without any known injury. He states he was just walking and noticed the pain which has increased. He rates his pain 8/10, pain mostly a the lateral aspect of the ankle. He does report using ice yesterday with moderate relief. Onset: yesterday Severity: moderate Pain/Injury Location: left ankle Method of Injury: unknown (He reports he was just walking when he noticed the pain) Modifying Factors: Improves With Cold Therapy; Worse With Movement; Improves With Rest Allergies and Home Medications Allergies Coded Allergies: No Known Drug Allergies (Unverified , 09/20/17) Home Medications Clindamycin HCl 300 Mg Capsule, 300 MG PO Q8H Prescribed by: SACHI AVELAR on 12/04/19 1619 Lorazepam 1 Mg Tablet, 1 MG PO TID PRN for AGITATION Prescribed by: MARIUM WALLER on 04/01/18 1055 Patient Home Medication List Home Medication List Reviewed: Yes Review of Systems Constitutional: no symptoms reported, see HPI EENTM: see HPI, no symptoms reported Respiratory: no symptoms reported, see HPI Cardiovascular: no symptoms reported, see HPI Gastrointestinal: no symptoms reported, see HPI Genitourinary: no symptoms reported, see HPI Musculoskeletal: no symptoms reported, see HPI Skin: see HPI Psychiatric/Neurological: No Symptoms Reported Past Wowzwho-Rtswby-Lispvh Hx Patient Social History Alcohol Use: Occasionally Uses Number of Drinks Today: AA Alcohol Beverage of Choice: Beer Recreational Drug Use: Yes Drug of Choice: METH, BENZODIAZEPINES, ACID, THC Smoking Status: Current Everyday Smoker Type Used: Cigarettes 2nd Hand Smoke Exposure: Yes Recent Hopitalizations: No Physical Abuse: No Sexual Abuse: No Mistreated: No Fear: No Immunizations Up To Date Tetanus Booster (TDap): Unknown PED Vaccines UTD: Yes Seasonal Allergies Seasonal Allergies: No Past Medical History Surgeries: Yes (ARM FX/REPAIR, FACIAL SX) Orthopedic Respiratory: No Cardiac: No Neurological: No Reproductive Disorders: No Genitourinary: No Gastrointestinal: No Musculoskeletal: Yes (ARM FX/ REPAIR) Endocrine: No HEENT: No Cancer: No Psychosocial: Yes (POLYSUBSTANCE ABUSE) Anxiety, Depression Integumentary: No Blood Disorders: No Family Medical History No Pertinent Family Hx Physical Exam Vital Signs Vital Signs - First Documented 02/05/20 12:00 Temp 35.9 Pulse 96 Resp 18 B/P (MAP) 119/95 (103) Pulse Ox 99 Capillary Refill : Height, Weight, BMI Height: 6'0.00" Weight: 180lbs. 0.0oz. [id number]; 23.00 BMI Method:Actual General Appearance: WD/WN, no apparent distress HEENT: normal ENT inspection Neck: full range of motion, normal inspection Cardiovascular: normal peripheral pulses, regular rate, rhythm Respiratory: normal breath sounds, no respiratory distress, no accessory muscle use Gastrointestinal: normal bowel sounds, non tender, soft Back: normal inspection, no CVA tenderness, no vertebral tenderness Hips: bilateral hip non-tender Legs: bilateral leg non-tender Knees: bilateral knee non-tender Ankles: left ankle limited range of motion, left ankle pain, left ankle soft tissue tenderness, left ankle swelling Feet: bilateral foot non-tender Neurologic/Tendon: normal sensation, normal motor functions Neurologic/Psychiatric: no motor/sensory deficits, alert, normal mood/affect, oriented x 3 Skin: normal color, warm/dry Lymphatic: no adenopathy Progress/Results/Core Measures Results/Orders My Orders Orders - SWAPNIL ZIMMER APRN Ankle, Left, 3 Views (02/05/20 12:21) Ketorolac Injection (Toradol Injection) (02/05/20 12:30) Medications Given in ED Current Medications Medications Dose Ordered Sig/Blu Route Start Time Stop Time Status Last Admin Dose Admin Ketorolac Tromethamine 30 mg ONCE ONCE IM 02/05/20 12:30 02/05/20 12:31 DC 02/05/20 12:37 30 MG Vital Signs/I&O 02/05/20 12:00 Temp 35.9 Pulse 96 Resp 18 B/P (MAP) 119/95 (103) Pulse Ox 99 Departure Impression Primary Impression: Left ankle sprain Disposition: 01 HOME, SELF-CARE Condition: Stable Departure-Patient Inst. Decision time for Depature: 13:14 Referrals: [facility]/JEANNIE (PCP) Primary Care Physician ABHAY DUKES (Family) Primary Care Physician Patient Instructions: Ankle Sprain (DC) Add. Discharge Instructions: 1. Keep the brace on for stability. You may remove it to shower and once pain improves. 2. You may take over the counter ibuprofen or tylenol for discomfort. 3. Apply ice 20min on and 20min off for pain control. 4. Return to the ED for increased pain or worsening symptoms. 5. Follow-up with your primary care for further needs. All discharge instructions reviewed with patient and/or family. Voiced understanding. SWAPNIL ZIMMER APRN Feb 05, 2020 12:27
[2020-02-05] MEDS ORDERED: KETOROLAC 30 MG/ML VIAL IM ONE (12:30)
--- NOTE | 2020-02-05 12:52 | Diagnostic Imaging Report ---
INDICATION: Left ankle pain and swelling. TIME OF EXAM: 12:41 p.m. TECHNIQUE: Three views of the left ankle were obtained. FINDINGS: Alignment is normal. Ankle mortise is well maintained. Talar dome is smooth. No fracture or dislocation is seen. There is moderate soft tissue swelling about the lateral ankle. IMPRESSION: Lateral soft tissue swelling. No acute bony abnormality is detected. Dictated by: Dictated on workstation # [id number]
[2020-02-05 13:20] VITALS: BP 120/67
== END 2020-02-05 13:20 | disposition home or self-care (01) ==
LOC: EDUNIT# 11:46 → ER 11:48
DX: S93.402A Sprain of unspecified ligament of left ankle, initial encounter (principal); F41.9 Anxiety disorder, unspecified; F17.210 Nicotine dependence, cigarettes, uncomplicated; X58.XXXA Exposure to other specified factors, initial encounter
CPT/HCPCS: 73610; 99283; L4350

== ENCOUNTER 2020-04-12 20:50 | Emergency (ER) | payer SELFPAY ==
[~2020-04-12] VITALS: Ht 182.9 cm; Wt 86.4 kg
[~2020-04-12 20:50] MED LIST changes: -CLIN300C11 PO; +CLIN300C12 PO
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
--- NOTE | 2020-04-12 21:33 | Diagnostic Imaging Report ---
INDICATION: Pain. EXAMINATION: Three views of the right foot were obtained. FINDINGS: The alignment is normal. There is no fracture or dislocation. Soft tissues are unremarkable. IMPRESSION: No acute fracture or dislocation. Dictated by: Dictated on workstation # [id number]
[2020-04-12 22:15] VITALS: BP 137/98
== END 2020-04-12 22:15 | disposition home or self-care (01) ==
LOC: EDUNIT# 20:50 → ER 20:51
DX: S93.601A Unspecified sprain of right foot, initial encounter (principal); F41.9 Anxiety disorder, unspecified; Z77.22 Contact with and (suspected) exposure to environmental tobacco smoke (acute) (chronic); V89.2XXA Person injured in unspecified motor-vehicle accident, traffic, initial encounter
CPT/HCPCS: 73630

== ENCOUNTER 2022-03-11 10:29 | Emergency (ER) | payer SELFPAY ==
[~2022-03-11] VITALS: Ht 180 cm; Wt 78.0 kg
[~2022-03-11 10:29] MED LIST changes: +CLIN-144 PO; -CLIN300C12 PO
[2022-03-11 10:37] VITALS: BP 157/110
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
[2022-03-11 13:25] LABS: BASOPHILS % (AUTO) 0 % (0-10); EOSINOPHILS # (AUTO) 0.1 10^3/uL (0.0-0.3); EOSINOPHILS % (AUTO) 1 % (0-10); HEMATOCRIT 41 % (40-54); HEMOGLOBIN 14.2 g/dL (13.3-17.7); LYMPHOCYTES % (AUTO) 18 % (12-44); MEAN CORPUSCULAR HEMOGLOBIN 30 pg (25-34); MEAN CORPUSCULAR HGB CONC 35 g/dL (32-36); MEAN CORPUSCULAR VOLUME 87 fL (80-99); MEAN PLATELET VOLUME 9.7 fL (9.0-12.2); MONOCYTES # (AUTO) 0.6 10^3/uL (0.0-1.0); MONOCYTES % (AUTO) 10 % (0-12); NEUTROPHILS # (AUTO) 4.1 10^3/uL (1.8-7.8); NEUTROPHILS % (AUTO) 71 % (42-75); PLATELET COUNT 198 10^3/uL (130-400); WHITE BLOOD COUNT 5.8 10^3/uL (4.3-11.0)
[2022-03-11 13:50] LABS: BILIRUBIN,TOTAL 0.4 MG/DL (0.1-1.0); BUN/CREATININE RATIO 15; CALCIUM 9.3 MG/DL (8.5-10.1); CARBON DIOXIDE 25 MMOL/L (21-32); CHLORIDE 103 MMOL/L (98-107); CREATININE SERUM 1.22 MG/DL (0.60-1.30); GFR ESTIMATED 82; GLUCOSE 119 MG/DL (70-105); POTASSIUM 3.5 MMOL/L (3.6-5.0); SODIUM 140 MMOL/L (135-145)
[2022-03-11 13:51] LABS: ACETAMINOPHEN < 10 UG/ML (10-30); ALANINE AMINOTRANSFERASE 9 U/L (0-55); ALBUMIN 4.2 GM/DL (3.2-4.5); ALKALINE PHOSPHATASE 56 U/L (40-136); SALICYLATE < 0.3 MG/DL (5.0-20.0); TOTAL PROTEIN 7.2 GM/DL (6.4-8.2)
[2022-03-12] MEDS ORDERED: diphenhydrAMINE 25 MG TAB (BENADRYL) PO ONE (02:15)
== END 2022-03-12 09:10 | disposition home or self-care (01) ==
LOC: EDUNIT# 10:29 → ER FS 10:31
DX: F20.9 Schizophrenia, unspecified (principal); F17.210 Nicotine dependence, cigarettes, uncomplicated; Z20.822 Contact with and (suspected) exposure to COVID-19; Z28.311 Partially vaccinated for COVID-19
CPT/HCPCS: 36415; 80053; 85025; 87636; 93005; 99284; G0480 ×3; 80320; 80329